=== PATIENT | female | born 1950 | race Caucasian/White ===

== ENCOUNTER → 2016-05-05 | Outpatient (CLI) | payer BC ==
--- NOTE | 2016-05-06 09:09 | MM ---
Reason for exam: screening (asymptomatic). Last mammogram was performed 1 year and 1 month ago. History: Patient is postmenopausal. Benign US left CoreBiopsy of the left breast, March 19, 2006. Physical Findings: A clinical breast exam by your physician is recommended on an annual basis and results should be correlated with mammographic findings. MG Screening Mammo w CAD Bilateral CC and MLO view(s) were taken. Prior study comparison: April 11, 2015, bilateral MG 3d diag mammo w/cad DARCY. March 22, 2014, right breast MG work up mamm w CAD RT. Finding: There are typically benign calcifications in both breasts. Previous mammotome biopsy in the left breast. No significant changes in finding since April 11, 2015 and March 22, 2014. ASSESSMENT: Benign, BI-RAD 2 RECOMMENDATION: Routine screening mammogram of both breasts in 1 year.
== END | disposition home or self-care (01) ==
LOC: RADMAMWWP 10:09
PROVIDERS: ATTEND Family Medicine
DX: Z12.31 Encounter for screening mammogram for malignant neoplasm of breast (principal)

== ENCOUNTER 2016-06-11 12:25 | Observation (INO) | payer MEDICARE, BC ==
[2016-06-11] MEDS ORDERED: SODIUM CHLORIDE 0.9% 1,000 ML IV STA (12:44)
--- NOTE | 2016-06-11 12:51 | ED ---
General Adult HPI - General Chief complaint: Recheck/Abnormal Lab/Rx Stated complaint: High Heart Rate Time Seen by Provider: 06/11/16 12:29 Source: patient, EMS, RN notes reviewed Mode of arrival: EMS Limitations: no limitations - History of Present Illness Initial comments: Patient is a pleasant 65-year-old female presenting to the emergency Department with palpitations. Onset of symptoms was prior to arrival. Patient felt her heart going fast. Patient also had some mild pressure in her chest and was sweaty. Symptoms resolved with medication by EMS. EMS did provide adenosine 6 mg followed by 12 mg. Patient did have similar symptoms a couple times previously. No previous diagnosis was obtained. - Related Data Home Medications Medication Instructions Recorded Confirmed ALPRAZolam [Xanax] 0.25 mg PO DAILY PRN 02/10/14 06/11/16 RABEprazole SODIUM [Aciphex] 20 mg PO DAILY 02/10/14 06/11/16 Cholecalciferol [Vitamin D3] 1,000 unit PO DAILY 06/11/16 06/11/16 FLUoxetine HCL [PROzac] 30 mg PO DAILY 06/11/16 06/11/16 Fish Oil/Dha/Epa [Fish Oil 1,200 1 cap PO DAILY 06/11/16 06/11/16 mg Fish Oil] Magnesium 200 mg PO DAILY 06/11/16 06/11/16 Pitavastatin Calcium [Livalo] 2 mg PO WEEKLY 06/11/16 06/11/16 Probiotic (Liquid) 5 ml PO DAILY 06/11/16 06/11/16 Verapamil HCl [Verapamil ER] 120 mg PO ONCE PRN 06/11/16 06/11/16 Allergies Allergy/AdvReac Type Severity Reaction Status Date / Time azithromycin [From Zithromax] Allergy Diarrhea Verified 06/11/16 14:05 cephalexin Allergy Rash/Hives Verified 06/11/16 14:05 clindamycin Allergy BURNING Verified 06/11/16 14:05 TONGUE, NAUSEA levofloxacin [From Levaquin] Allergy COULD NOT Verified 06/11/16 14:05 SLEEP nitrofurantoin Allergy Unknown Verified 06/11/16 14:05 [From Macrobid] Penicillins Allergy Rash/Hives Verified 06/11/16 14:05 Jftpyya-Qtv-Dty Reductase Allergy Unknown Verified 06/11/16 14:05 Inhibitor Sulfa (Sulfonamide AdvReac Nausea & Verified 06/11/16 14:05 Antibiotics) Vomiting viomycin [Viomycin] AdvReac Nausea & Verified 06/11/16 14:05 Vomiting SUDAFEDRINE Allergy Rapid Uncoded 06/11/16 14:05 Heart Rate Review of Systems ROS Statement: Those systems with pertinent positive or pertinent negative responses have been documented in the HPI. ROS Other: All systems not noted in ROS Statement are negative. Constitutional: Denies: fever Eyes: Denies: eye pain ENT: Denies: ear pain Respiratory: Denies: cough, dyspnea Cardiovascular: Reports: chest pain, palpitations Endocrine: Denies: fatigue Gastrointestinal: Denies: abdominal pain Genitourinary: Denies: dysuria Musculoskeletal: Denies: back pain Skin: Denies: rash Neurological: Denies: weakness Past Medical History Past Medical History: GERD/Reflux Additional Past Medical History / Comment(s): HX UTI'S History of Any Multi-Drug Resistant Organisms: None Reported Past Surgical History: Cholecystectomy, Hysterectomy, Orthopedic Surgery, Tonsillectomy Past Anesthesia/Blood Transfusion Reactions: Motion Sickness, Postoperative Nausea & Vomiting (PONV) Smoking Status: Former smoker Past Alcohol Use History: None Reported Additional Past Alcohol Use History / Comment(s): QUIT SMOKING 1972 STARTED APRROX 1966 Past Drug Use History: None Reported General Exam Limitations: no limitations General appearance: alert, in no apparent distress Head exam: Present: atraumatic Eye exam: Present: normal appearance, PERRL ENT exam: Present: normal oropharynx Neck exam: Present: normal inspection Respiratory exam: Present: normal lung sounds bilaterally Cardiovascular Exam: Present: regular rate, normal rhythm Expanded Peripheral pulses: 2+: Radial (R), Radial (L), Dorsalis Pedis (R), Dorsalis Pedis (L) GI/Abdominal exam: Present: soft. Absent: tenderness Extremities exam: Present: normal inspection. Absent: pedal edema, calf tenderness Neurological exam: Present: alert Psychiatric exam: Present: normal affect, normal mood Skin exam: Absent: rash Course Vital Signs 06/11/16 06/11/16 06/11/16 12:28 13:25 13:26 Temperature 100.3 F H Pulse Rate 95 91 Pulse Rate [ 89 Bilateral Radial] Respiratory 16 15 Rate Blood Pressure 172/94 158/92 O2 Sat by Pulse 97 99 Oximetry 06/11/16 14:30 Temperature 99.0 F Pulse Rate 97 Pulse Rate [ Bilateral Radial] Respiratory 14 Rate Blood Pressure 178/84 O2 Sat by Pulse 95 Oximetry - Reevaluation(s) Reevaluation #1: 06/11/16 12:50 EMS strip reviewed with appearance of SVT. EKG Findings - EKG Comments: EKG Findings:: Normal sinus rhythm and 92. GA 158. QRS 78. QT 386. QTc 477. Normal axis. Septal Q waves. No acute ST changes. Medical Decision Making - Medical Decision Making Patient reevaluated and resting comfortably in bed. Heart rate remains normal. Case discussed in detail with Dr. miller who does recommend observation and will consult. Case was also discussed in detail with Dr. Prado, who will admit for Dr. Phillips. - Lab Data Result diagrams: 06/11/16 12:45 06/11/16 12:45 Lab Results 06/11/16 06/11/16 06/11/16 Range/Units 12:45 12:45 12:45 WBC 8.1 (3.8-10.6) k/uL RBC 4.85 (3.80-5.40) m/uL Hgb 14.7 (11.4-16.0) gm/dL Hct 43.2 (34.0-46.0) % MCV 89.2 (80.0-100.0) fL MCH 30.4 (25.0-35.0) pg MCHC 34.1 (31.0-37.0) g/dL RDW 12.9 (11.5-15.5) % Plt Count 294 (150-450) k/uL Neutrophils % 70 % Lymphocytes % 19 % Monocytes % 6 % Eosinophils % 2 % Basophils % 1 % Neutrophils # 5.7 (1.3-7.7) k/uL Lymphocytes # 1.6 (1.0-4.8) k/uL Monocytes # 0.5 (0-1.0) k/uL Eosinophils # 0.1 (0-0.7) k/uL Basophils # 0.1 (0-0.2) k/uL PT (9.0-12.0) sec INR (<1.1) APTT (22.0-30.0) sec Sodium 143 (137-145) mmol/L Potassium 3.9 (3.5-5.1) mmol/L Chloride 107 (98-107) mmol/L Carbon Dioxide 23 (22-30) mmol/L Anion Gap 13 mmol/L BUN 14 (7-17) mg/dL Creatinine 0.77 (0.52-1.04) mg/dL Est GFR (MDRD) Af Amer >60 (>60 ml/min/1.73 sqM) Est GFR (MDRD) Non-Af >60 (>60 ml/min/1.73 sqM) Glucose 121 H (74-99) mg/dL Calcium 9.8 (8.4-10.2) mg/dL Magnesium 1.9 (1.6-2.3) mg/dL Total Bilirubin 0.7 (0.2-1.3) mg/dL AST 31 (14-36) U/L ALT 34 (9-52) U/L Alkaline Phosphatase 105 (38-126) U/L Total Creatine Kinase 125 (30-135) U/L CK-MB (CK-2) 1.3 (0.0-2.4) ng/mL CK-MB (CK-2) Rel Index 1.0 Troponin I <0.012 (0.000-0.034) ng/mL Total Protein 7.6 (6.3-8.2) g/dL Albumin 4.4 (3.5-5.0) g/dL TSH 2.940 (0.465-4.680) mIU/L Free T4 1.04 (0.78-2.19) ng/dL Free T3 pg/mL 4.1 (2.8-5.3) pg/ml Urine Color Urine Appearance (Clear) Urine pH (5.0-8.0) Ur Specific [place] (1.001-1.035) Urine Protein (Negative) Urine Glucose (UA) (Negative) Urine Ketones (Negative) Urine Blood (Negative) Urine Nitrate (Negative) Urine Bilirubin (Negative) Urine Urobilinogen (<2.0) mg/dL Ur Leukocyte Esterase (Negative) Urine RBC (0-5) /hpf Urine WBC (0-5) /hpf Amorphous Sediment (None) /hpf Influenza Type A RNA (Not Detectd) Influenza Type B (PCR) (Not Detectd) 06/11/16 06/11/16 06/11/16 Range/Units 12:45 13:28 14:21 WBC (3.8-10.6) k/uL RBC (3.80-5.40) m/uL Hgb (11.4-16.0) gm/dL Hct (34.0-46.0) % MCV (80.0-100.0) fL MCH (25.0-35.0) pg MCHC (31.0-37.0) g/dL RDW (11.5-15.5) % Plt Count (150-450) k/uL Neutrophils % % Lymphocytes % % Monocytes % % Eosinophils % % Basophils % % Neutrophils # (1.3-7.7) k/uL Lymphocytes # (1.0-4.8) k/uL Monocytes # (0-1.0) k/uL Eosinophils # (0-0.7) k/uL Basophils # (0-0.2) k/uL PT 11.1 (9.0-12.0) sec INR 1.1 (<1.1) APTT 24.0 (22.0-30.0) sec Sodium (137-145) mmol/L Potassium (3.5-5.1) mmol/L Chloride (98-107) mmol/L Carbon Dioxide (22-30) mmol/L Anion Gap mmol/L BUN (7-17) mg/dL Creatinine (0.52-1.04) mg/dL Est GFR (MDRD) Af Amer (>60 ml/min/1.73 sqM) Est GFR (MDRD) Non-Af (>60 ml/min/1.73 sqM) Glucose (74-99) mg/dL Calcium (8.4-10.2) mg/dL Magnesium (1.6-2.3) mg/dL Total Bilirubin (0.2-1.3) mg/dL AST (14-36) U/L ALT (9-52) U/L Alkaline Phosphatase (38-126) U/L Total Creatine Kinase (30-135) U/L CK-MB (CK-2) (0.0-2.4) ng/mL CK-MB (CK-2) Rel Index Troponin I (0.000-0.034) ng/mL Total Protein (6.3-8.2) g/dL Albumin (3.5-5.0) g/dL TSH (0.465-4.680) mIU/L Free T4 (0.78-2.19) ng/dL Free T3 pg/mL (2.8-5.3) pg/ml Urine Color Light Yellow Urine Appearance Clear (Clear) Urine pH 8.0 (5.0-8.0) Ur Specific [place] 1.004 (1.001-1.035) Urine Protein Negative (Negative) Urine Glucose (UA) Negative (Negative) Urine Ketones Negative (Negative) Urine Blood Trace H (Negative) Urine Nitrate Negative (Negative) Urine Bilirubin Negative (Negative) Urine Urobilinogen <2.0 (<2.0) mg/dL Ur Leukocyte Esterase Negative (Negative) Urine RBC 6 H (0-5) /hpf Urine WBC 1 (0-5) /hpf Amorphous Sediment Rare H (None) /hpf Influenza Type A RNA Not Detected (Not Detectd) Influenza Type B (PCR) Not Detected (Not Detectd) - Radiology Data Radiology results: image reviewed (Chest x-ray shows no acute process. They density stable since 2009 and could be scarring or atelectasis.) Disposition Clinical Impression: SVT (supraventricular tachycardia) Disposition: ADMITTED IP TO THIS HOSP
[2016-06-11 13:03] LABS: Basophils # (A) 0.1 k/uL (0-0.2); Basophils % (A) 1 %; CH 30.8; CHCM 34.7; Eosinophils # (A) 0.1 k/uL (0-0.7); Eosinophils % (A) 2 %; HCT 43.2 % (34.0-46.0); HDW 2.26; HGB 14.7 gm/dL (11.4-16.0); Luc # (Auto) 0.21; Luc % (Auto) 3; Lymphocytes # (A) 1.6 k/uL (1.0-4.8); Lymphocytes % (A) 19 %; MCH 30.4 pg (25.0-35.0); MCHC 34.1 g/dL (31.0-37.0); MCV 89.2 fL (80.0-100.0); Mean Platelet Volume 8.5; Monocytes # (A) 0.5 k/uL (0-1.0); Monocytes % (A) 6 %; Neutrophils # (A) 5.7 k/uL (1.3-7.7); Neutrophils % (A) 70 %; RBC 4.85 m/uL (3.80-5.40); RDW 12.9 % (11.5-15.5); WBC 8.1 k/uL (3.8-10.6); WBC (Perox) 7.83
--- NOTE | 2016-06-11 13:07 | XR ---
EXAMINATION TYPE: XR chest 2V DATE OF EXAM: 06/11/2016 1:02 PM COMPARISON: 07/12/2009 TECHNIQUE: PA and lateral views submitted. HISTORY: Dysrhythmia FINDINGS: The lungs are clear and there is no pneumothorax, pleural effusion, or focal pneumonia. The heart i s enlarged and hyperinflation suggests COPD. Biapical pleural thickening. Degenerative change of the spine. Surgical clips in the upper abdomen. Vague density along the right costophrenic angle noted ap pears retrospectively stable. IMPRESSION: 1. No acute process. Correlate for COPD. 2. Vague density along the right costophrenic angle appears retrospectively stable dating back to 201 0 and therefore likely related to scar or atelectasis. Confirmation with short-term follow up CT scan could be obtained.
[2016-06-11 13:14] LABS: INR 1.1 (<1.1); Prothrombin Time 11.1 sec (9.0-12.0)
[2016-06-11 13:28] LABS: ALT 34 U/L (9-52); AST 31 U/L (14-36); Alkaline Phosphatase 105 U/L (38-126); Anion Gap 13 mmol/L; Blood Urea Nitrogen 14 mg/dL (7-17); Calcium 9.8 mg/dL (8.4-10.2); Carbon Dioxide 23 mmol/L (22-30); Chloride 107 mmol/L (98-107); Glucose 121 mg/dL (74-99); Magnesium 1.9 mg/dL (1.6-2.3); Non-African American GFR(MDRD) >60 (>60 ml/min/1.73 sqM); Sodium 143 mmol/L (137-145); Total Bilirubin 0.7 mg/dL (0.2-1.3); Total Protein 7.6 g/dL (6.3-8.2)
[2016-06-11 13:30] LABS: Potassium 3.9 mmol/L (3.5-5.1)
[2016-06-11 13:35] LABS: Creatine Kinase 125 U/L (30-135)
[2016-06-11 13:48] LABS: Creatine Kinase MB 1.3 ng/mL (0.0-2.4); Troponin I <0.012 ng/mL (0.000-0.034)
[2016-06-11 14:46] LABS: Amorphous Sediment,Urine Rare /hpf; Appearance,Urine Clear (Clear); Bilirubin,Urine Negative (Negative); Glucose,Urine (UA) Negative (Negative); Ketones,Urine Negative (Negative); Leukocyte Esterase,Urine Negative (Negative); Nitrite,Urine Negative (Negative); Particle Count 1042; Protein,Urine Negative (Negative); RBC,Urine 6 /hpf (0-5); Specific Gravity,Urine 1.004 (1.001-1.035); UA Billing (MACRO vs. MICRO) MICRO; Urobilinogen,Urine <2.0 mg/dL (<2.0); WBC,Urine 1 /hpf (0-5)
[2016-06-11] MEDS ORDERED: ASPIRIN 81 MG CHEW PO STA (15:37)
[2016-06-11] MEDS ORDERED: NITROGLYCERIN SL TABS 0.4 MG TAB SUBLINGUAL PRN (15:37)
[2016-06-11] MEDS ORDERED: RX INFO: IV CONTRAST WAS GIVEN 1 EACH MISC MISCELLANE PRN (15:45)
--- NOTE | 2016-06-11 16:27 | CT ---
EXAMINATION TYPE: CT chest w con DATE OF EXAM: 06/11/2016 4:18 PM COMPARISON: NONE HISTORY: Patient complains of episode of chest heaviness. CT DLP: 371.7 mGycm Automated exposure control for dose reduction was used. CONTRAST: CT scan of the chest is performed with IV Contrast, patient injected with 100 mL of Omnipaque 300. FINDINGS: LUNGS: The lungs are grossly clear, there is no concerning parenchymal mass or nodule identified. The re is mild pleural parenchymal density at the right lateral lung base which is felt to be chronic in nature and likely related to a remote rib fracture in this region. There is no pleural effusion or p neumothorax seen. The tracheobronchial tree is patent. MEDIASTINUM: There are no greater than 1 cm hilar or mediastinal lymph nodes. No pericardial effusi on is seen. Thoracic aorta is of normal caliber. The heart is not enlarged. UPPER ABDOMEN: No significant abnormality appreciated. OTHER: No additional significant abnormality is seen. IMPRESSION: 1. No acute process of the chest identified.
[2016-06-11] MEDS ORDERED: ALPRAZolam 0.25 MG TAB PO PRN (16:49)
[2016-06-11] MEDS: PANTOPRAZOLE 40 MG/10 ML VIAL IVP SCH (17:47)
[2016-06-11 18:01] VITALS: BMI 30.9
--- NOTE | 2016-06-11 18:43 | HP ---
DATE OF ADMISSION: Patient is a 70-year-old female who came into the emergency department with complaints of palpitations and patient was also having chest pressure like sensation and sweating. Patient received ( ). Patient was found to have ( ) and received 6 mg of ( ) followed by 6 mg more with rhythm coming back to sinus rhythm. I did not get a chance to review the EKG in order to see whether this area ( ) or not. Patient denied any fever, chills. Patient denied nausea, vomiting. Did respond to ( ). Patient has a low grade fever. Patient denied any urinary tract infection like symptoms. UA essentially within normal limits. Chest x-ray within normal limits. There is no evidence of ( ) at this point of time. Patient had only one low grade fever. Patient ( ). Patient in the past had similar episode in the past was secondary to her medications, which were subsequently discontinued. Patient initially thought patient may have acid reflux. REVIEW OF SYSTEMS: CONSTITUTIONAL: No fever, no malaise, no fatigue. HEENT: No recent visual problems or hearing problems. Denied any sore throat. CARDIOVASCULAR: As described in HPI. PULMONARY: No shortness of breath, no cough, no hemoptysis. GASTROINTESTINAL: No diarrhea, no nausea, no vomiting, no abdominal pain. Normoactive bowel sounds. NEUROLOGICAL: No headaches, no weakness, no numbness. HEMATOLOGICAL: Denies any bleeding or petechiae. GENITOURINARY: Denies any burning micturition, frequency, or urgency. MUSCULOSKELETAL/RHEUMATOLOGICAL: Denies any joint pain, swelling, or any muscle pain. ENDOCRINE: Denies any polyuria or polydipsia. The rest of the 14 point review of systems is negative. HOME MEDICATIONS: ( ), cholecalciferol, fluoxetine, fish oil, magnesium, pravastatin, probiotics, verapamil. That was given once for her tachycardia. ALLERGIES: ALLERGIC TO AZITHROMYCIN, CEPHALEXIN, CLINDAMYCIN, LEVOFLOXACIN, NITROFURANTOIN, PENICILLIN, STATIN, SULFA DRUGS, ( ). PAST MEDICAL HISTORY: Gastroesophageal reflux disease, hyperlipidemia, although it says patient is allergic to statins, patient is on pitavastatin. Depression, anxiety disorder. SOCIAL HISTORY: Denied any smoking, alcohol abuse or drug abuse. FAMILY HISTORY: Denied any premature coronary artery disease. PHYSICAL EXAMINATION: Temperature 100.3, pulse 89, respiratory rate 16, blood pressure 158/92, saturating at 99% on room air. GENERAL: The patient is alert and oriented x3, not in any acute distress. Well developed, well nourished. HEENT: Pupils are round and equally reacting to light. EOMI. No scleral icterus. No conjunctival pallor. Normocephalic, atraumatic. No pharyngeal erythema. No thyromegaly. CARDIOVASCULAR: S1 and S2 present. No murmurs, rubs, or gallops. PULMONARY: Chest is clear to auscultation, no wheezing or crackles. ABDOMEN: Soft, nontender, nondistended, normoactive bowel sounds. No palpable organomegaly. MUSCULOSKELETAL: No joint swelling or deformity. EXTREMITIES: No cyanosis, clubbing, or pedal edema. NEUROLOGICAL: Gross neurological examination did not reveal any focal deficits. SKIN: No rashes. LABORATORY DATA: CBC, CMP, no significant abnormality was appreciated. TSH and T4 are essentially within normal limits. UA did not show any significant abnormalities. Chest x-ray did not show any pneumonic process. ( ) negative. ASSESSMENT AND PLAN: 1. Supra Ventricular tachycardia: Cardiology will evaluate the patient and will order an echocardiogram. Patient may need ( ) study. Patient will benefit from beta blockers. Will leave that decision to Cardiology. ( ) 2. Gastroesophageal reflux disease. Patient will continue on Protonix. 3. Hyperlipidemia. Will continue home medications. ( ) discharge from the hospital, that is pitavastatin. As patient is allergic to other statins. 4. Low-grade fever without any other signs or symptoms of infection. ( ) Will just monitor her over night and I do not think patient will need any antibiotics at this point of time. 5. Patient's primary care physician is Dr. Eze Phillips. [facility]
[2016-06-11] MEDS ORDERED: ONDANSETRON 4 MG/2 ML VIAL IVP PRN (19:01)
[2016-06-11 21:05] LABS: Creatine Kinase MB 1.2 ng/mL (0.0-2.4); Troponin I 0.013 ng/mL (0.000-0.034)
[2016-06-12 03:18] LABS: Cholesterol 186 mg/dL (<200); HDL Cholesterol 59 mg/dL (40-60); Triglycerides 65 mg/dL (<150)
[2016-06-12 03:57] LABS: Creatine Kinase MB 1.1 ng/mL (0.0-2.4); Troponin I 0.012 ng/mL (0.000-0.034)
[2016-06-12 05:48] VITALS: TEMP 97.7
[2016-06-12 07:45] VITALS: RESP 18
[2016-06-12] MEDS ORDERED: FLUoxetine HCL 10 MG CAP PO SCH (09:00)
[2016-06-12] MEDS ORDERED: NON-FORMULARY DRUG (Rabeprazole Sodium [Aciphex] 20 MG) PO SCH (09:00)
[2016-06-12] MEDS ORDERED: ASPIRIN 325 MG TAB PO SCH (09:00)
[2016-06-12] MEDS ORDERED: MAGNESIUM OXIDE 400 MG TAB PO SCH (09:00)
[2016-06-12] MEDS ORDERED: VERAPAMIL SR 120 MG TABLET.ER PO SCH (09:00)
[2016-06-12] MEDS ORDERED: NON-FORMULARY DRUG (Fish Oil/Dha/Epa [Fish Oil 1,200 Mg Fish Oil] 1 CAP) PO SCH (09:00)
--- NOTE | 2016-06-12 09:48 | ECHOF ---
Referral Reason:SVT/Chest pain MEASUREMENTS -------- HEIGHT: 175.3 cm WEIGHT: 94.8 kg BP: 148/81 RVIDd: 2.9 cm (< 3.3) IVSd: 1.1 cm (0.6 - 1.1) LVIDd: 4.7 cm (3.9 - 5.3) LVPWd: 1.2 cm (0.6 - 1.1) IVSs: 2.0 cm LVIDs: 3.4 cm LVPWs: 1.6 cm LA Diam: 3.8 cm (2.7 - 3.8) LAESV Index (A-L): 23.42 ml/m Ao Diam: 2.8 cm (2.0 - 3.7) AV Cusp: 1.8 cm (1.5 - 2.6) LA Diam: 3.9 cm (2.7 - 3.8) MV EXCURSION: 11.714 mm (> 18.000) MV EF SLOPE: 69 mm/s (70 - 150) EPSS: 0.5 cm MV E Tom: 0.78 m/s MV DecT: 277 ms MV A Tom: 0.85 m/s MV E/A Ratio: 0.91 FINDINGS -------- Sinus rhythm. This was a technically good study. There is borderline concentric left ventricular hypertrophy. Overall left ventricular systolic function is normal with, an EF between 55 - 60 %. The right ventricle is normal in size. Normal LA size by volume 22+/-6 ml/m2. The right atrium is normal in size. Aortic valve is trileaflet and is mildly thickened. The mitral valve leaflets are mildly thickened. Mild mitral annular calcification present. Mild mitral regurgitation is present. Trace tricuspid regurgitation present. Pulmonic valve appears structurally normal. The aortic root size is normal. Normal inferior vena cava with normal inspiratory collapse consistent with estimated right atrial pressure of 5 mmHg. Echo free space may represent effusion or a pericardial fat pad. CONCLUSIONS -------- 1. This was a technically good study. 2. Mild mitral regurgitation is present. 3. Trace tricuspid regurgitation present. 4. Pulmonic valve appears structurally normal. 5. The aortic root size is normal. 6. Normal inferior vena cava with normal inspiratory collapse consistent with estimated right atrial pressure of 5 mmHg. 7. Echo free space may represent effusion or a pericardial fat pad. 8. There is borderline concentric left ventricular hypertrophy. 9. Overall left ventricular systolic function is normal with, an EF between 55 - 60 %. 10. The right ventricle is normal in size. 11. Normal LA size by volume 22+/-6 ml/m2. 12. The right atrium is normal in size. 13. Aortic valve is trileaflet and is mildly thickened. 14. The mitral valve leaflets are mildly thickened. 15. Mild mitral annular calcification present. TAPE COATER: Jone Gold RDCS
[2016-06-12] MEDS: CHOLECALCIFEROL 1,000 UNIT TAB PO SCH ×2 (11:49→11:51)
[2016-06-12] MEDS: PANTOPRAZOLE 40 MG/10 ML VIAL IVP SCH (11:51)
[2016-06-12 12:00] VITALS: BP 156/78; PULSE 66
--- NOTE | 2016-06-12 14:07 | CONS ---
DATE OF CONSULTATION: Mrs. Huffman is a 65-year-old female who is seen for the cardiac evaluation. The history and physical examinations are reviewed. Patient presented to the emergency room department with palpitations. Patient felt her heart was going fast. She took Isoptin without any relief and the fast heart rate persisted. Patient had mild pressure in the chest and she was sweaty. She was not dizzy or lightheaded. The EMS strips were suggestive of supraventricular tachycardia. Patient received 6 and 12 mg of Adenocard and then patient converted to the normal sinus rhythm. I do not have any strips available to review it. Patient does have a past history of supraventricular tachycardia. Patient had an episode in April and was subsided by taking Isoptin. She had a similar episode about a year ago. This patient has a history of borderline hypertension. Denies any history of diabetes. Denies any history of angina. Patient is active physically. Home medications include vitamin D3, Aciphex, Prozac and Livalo. Allergic to CLINDAMYCIN, ZITHROMAX, LEVAQUIN and SULFA. Review of the system is otherwise unremarkable. Past medical history includes history of cholecystectomy, hysterectomy, orthopedic surgery and tonsillectomy. SMOKING STATUS: Prior history of smoking. Physical examination at present reveals a 65-year-old female who is comfortable. Patient had a temperature of 100.3 in the emergency room and the blood pressure was 172. Patient subsequently has remained afebrile since the admission. Blood pressure now is 152-76 mmHg. HEENT examination is negative. Neck is supple. There is no increase in jugular venous pressure. Both the carotid pulses are felt. There is no bruit. Chest is symmetrical. HEART: The PMI is not felt. First and second heart sounds are normal. Lungs are clinically clear to auscultation and percussion. Abdomen is soft. Liver and spleen are not enlarged. Bowel sounds are heard. EXTREMITIES: Peripheral pulsations are 2+. EKG shows normal sinus rhythm without any acute ischemic changes. Patient's echocardiogram was normal. Patient had a chest CT done which was normal. Three sets of cardiac enzymes are normal. The patient's cholesterol LDL is still 114. FT4 and TSH was normal. FINAL IMPRESSION: This patient has had been having recurrent episodes of supraventricular tachycardia. Patient has a history of borderline hypertension and hyperlipidemia. There is no history suggestive of coronary artery disease. RECOMMENDATIONS: At present, patient is comfortable. She will be discharged home. She is advised to take regularly Isoptin once a day. She can take extra Isoptin if she has any recurrence of supraventricular tachycardia. The patient would follow up with Dr. Rodriguez. I discussed with the patient regarding further evaluation for radiofrequency ablation. She will discuss this with Dr. Rodriguez and a stress test will be done, if she did not have any stress test done recently because of the multiple risk factors.
--- NOTE | 2016-06-13 08:33 | DS ---
DATE OF ADMISSION: 06/11/2016 DATE OF DISCHARGE: 06/12/2016 This is a 65-year-old admitted secondary to SVT. SVT resolved with adenosine. Patient was evaluated by Cardiology. Echocardiogram was obtained, which was negative. Patient has verapamil at home. Patient was asked to continue the verapamil and patient was asked to follow up with Dr. Rodriguez for further evaluation and possible EP study as an outpatient. TSH is essentially within normal limits. I am not sure why patient had a CT of the chest which did not show any significant abnormality. Patient is being discharged in stable medical condition to home. Please refer to my depart summary for further details of discharge medications and for further medical problems, please refer to my H&P from yesterday. Activity as tolerated. Cardiac diet. Follow up with Dr. Rodriguez in one week; Dr. Eze Phillips in 3 to 5 days.
== END 2016-06-12 15:15 | disposition home or self-care (01) ==
LOC: EC 12:25 → 3OBS 15:39
PROVIDERS: ADMIT Internal Medicine; ATTEND Internal Medicine
DX: I47.1 Supraventricular tachycardia (principal); R50.9 Fever, unspecified; E78.5 Hyperlipidemia, unspecified; K21.9 Gastro-esophageal reflux disease without esophagitis; R03.0 Elevated blood-pressure reading, without diagnosis of hypertension; F32.9 Major depressive disorder, single episode, unspecified; F41.9 Anxiety disorder, unspecified; Z88.0 Allergy status to penicillin; Z88.1 Allergy status to other antibiotic agents; Z88.2 Allergy status to sulfonamides; Z87.891 Personal history of nicotine dependence; Z79.899 Other long term (current) drug therapy
CPT/HCPCS: 36415; 93005; 93306; 84439; 84481; 80061; 80053; 84443 ×2; 82550 ×2; 82553 ×2; 83735; 84484 ×2; 85025; 85610; 85730 ×2; 81001; 87502; 71020; 71260; 99285; G0378 ×2; J2405; Q9967

== ENCOUNTER 2016-07-17 10:13 | Day surgery (SDC) | payer MEDICARE, BC ==
[~2016-07-17 10:13] MED LIST: LACTATED RINGERS 1,000 ML IV SCH; SODIUM CHLORIDE 0.9% 1,000 ML IV SCH
[2016-07-17 11:00] LABS: Basophils # (A) 0.1 k/uL (0-0.2); Basophils % (A) 1 %; CH 30.8; CHCM 33.9; Eosinophils # (A) 0.2 k/uL (0-0.7); Eosinophils % (A) 2 %; HCT 39.8 % (34.0-46.0); HDW 2.18; HGB 13.4 gm/dL (11.4-16.0); Luc # (Auto) 0.16; Luc % (Auto) 3; Lymphocytes # (A) 1.6 k/uL (1.0-4.8); Lymphocytes % (A) 26 %; MCH 30.7 pg (25.0-35.0); MCHC 33.6 g/dL (31.0-37.0); MCV 91.1 fL (80.0-100.0); Mean Platelet Volume 7.4; Monocytes # (A) 0.3 k/uL (0-1.0); Monocytes % (A) 5 %; Neutrophils # (A) 3.9 k/uL (1.3-7.7); Neutrophils % (A) 63 %; RBC 4.37 m/uL (3.80-5.40); RDW 13.3 % (11.5-15.5); WBC 6.1 k/uL (3.8-10.6); WBC (Perox) 5.99
[2016-07-17 11:17] LABS: Anion Gap 9 mmol/L; Blood Urea Nitrogen 16 mg/dL (7-17); Calcium 9.4 mg/dL (8.4-10.2); Carbon Dioxide 26 mmol/L (22-30); Chloride 105 mmol/L (98-107); Glucose 101 mg/dL (74-99); Non-African American GFR(MDRD) >60 (>60 ml/min/1.73 sqM); Potassium 4.1 mmol/L (3.5-5.1); Sodium 140 mmol/L (137-145)
[2016-07-17] MEDS ORDERED: MIDAZOLAM 2 MG/2 ML VIAL IV ONE (11:46)
[2016-07-17] MEDS ORDERED: MIDAZOLAM 2 MG/2 ML VIAL ONE ×2 (11:47→12:05)
[2016-07-17] MEDS ORDERED: fentaNYL (PF) 50 MCG/ML 2 ML AMP ONE (12:05)
[2016-07-17] MEDS ORDERED: PROPOFOL 10 MG/ML 20 ML VIAL IV ONE (12:05)
[2016-07-17] MEDS ORDERED: ISOPROTERENOL 250 MCG/1.25 ML SYR IV ONE (12:05)
[2016-07-17] MEDS ORDERED: LIDOCAINE 2% INJ 20 MG/ML SQ ONE ×3 (12:52→13:03)
[2016-07-17] MEDS ORDERED: ADENOSINE 3 MG/ML 2 ML VIAL IVP ONE (14:05)
[2016-07-17] MEDS ORDERED: ADENOSINE 3 MG/ML 4 ML VIAL IVP ONE (14:05)
[2016-07-17] MEDS ORDERED: SODIUM CHLORIDE 0.9% 1,000 ML IV ONE (15:14)
[2016-07-17] MEDS ORDERED: HYDROcodone/APAP 5-325MG 1 EACH TAB PO PRN (15:31)
[2016-07-17] MEDS ORDERED: ACETAMINOPHEN TAB 325 MG TAB PO PRN (15:31)
[2016-07-17] MEDS ORDERED: ALPRAZolam 0.25 MG TAB PO PRN (15:33)
[2016-07-17] MEDS ORDERED: ACETAMINOPHEN IV (For NPO) 1,000 MG in EMPTY BAG 1 BAG IVPB ONE (16:15)
--- NOTE | 2016-07-17 16:19 | CE ---
DATE OF SERVICE: Marianne Huffman is a 66-year-old female who has had recurrent drug refractory supraventricular tachycardia, symptomatic. She is brought in for a diagnostic EP study. Verapamil was held. Patient was brought to the EP lab in a fasting state. Written informed consent was obtained prior to the procedure. The left shoulder area was prepped and draped as per protocol and 1% lidocaine was used for local anesthesia. A 6 Pakistani sheath was placed in left axillary vein and via this decapolar catheter was positioned in the coronary sinus for coronary sinus pacing and recording. Three venous sheaths were placed in the right femoral vein. Via these, 3 diagnostic catheters were placed in the right heart (high right catheter, His bundle catheter and RV catheter). Baseline measurements were as follows: Sinus cycle 822 ms, MA interval 155 ms, QRS 100 ms and QT 438 ms, AH interval 75 ms, HV interval 52 ms. Sinus recovery times at 600, 500, and 400 ms were 1151, 941 and 1079 ms. Corresponding corrected sinus node recovery times were within normal limits. There was no evidence of slow pathway conduction. No delta waves are noted. AV node Wenckebach block was 390 ms, VA Wenckebach block was 340 ms. Atrial extrastimulation was performed. An antegrade jump was noted with double extra stimuli and echo beats were noted. Atrial ERP 600/400/280 ms. Ventricular extrastimulation was performed and retrograde jump was noted and occasional echo beats are noted. Later slow SVT was noted with ventricular extrastimulation. Ventricular ERP was 600/270 ms. Parahisian pacing was performed. Solo response was noted. Isuprel was then started, left bundle branch block aberrancy was noted with atrial pacing on Isuprel. AV node Wenckebach block 270 ms, VA Wenckebach block 240 ms. Ventricular extrastimulation was performed. Atrial extrastimulation was performed. A single, double and triple echo beats were noted. No sustained SVT was induced even with CS pacing. Therefore in view of this evidence of absence of any accessory pathway, no inducible atrial tachycardia in the presence of antegrade as well as retrograde slow pathway conduction with echo beats single, double and triple. SVT ablation, slow pathway was performed. A 4 mm-tip ablation catheter was used. Three-D mapping was performed. The His cloud was identified and tagged. Coronary sinus os and roof were tagged. RF ablation was performed anterior to the coronary sinus and this resulted in junctional rhythm. The patient had junctional beats with virtually all RF lesions. However, the antegrade and retrograde slow pathway conduction remained. Therefore, RF ablation was performed outside the coronary sinus and at its floor. Then subsequently, just within the os of the coronary sinus and at this site, junctional beats were noted in great numbers. With junctional rhythm, good power and good temperature was noted. The junctional rhythm were then converted to sinus rhythm. Following that, a full EP study was performed and only occasional echo beats were noted, but no sustained SVT was noted. All catheters were then removed and patient was transferred to telemetry. RESULT: Diagnostic EP study revealin. Normal sinus rhythm and function. 2. Antegrade and retrograde slow pathway conduction without inducible fast SVT as she clinically experienced, but evidence of short bursts of supraventricular tachycardia, AV node re-entry. 3. Absence of any accessory pathway either antegrade or retrogradely. 4. Absence of any atrial tachycardia. 5. Ablation of the slow pathway outside the coronary sinus anteriorly just at the floor of the coronary sinus, and just within the coronary sinus. PLAN: Patient will be taken off AV solo blocking drugs. If she has recurrence and then a left-sided AV and AVNRT ablation will be performed in the future.
--- NOTE | 2016-07-17 16:21 | LTR ---
July 17, 2016 RE: Marianne Huffman Vince Dear Dr. Phillips: I had the pleasure of seeing Marianne Huffman in electrophysiology follow-up. As you know, Marianne has recurrent episodes of SVT and despite AV franklin blocking drugs, she was brought in for a diagnostic EP study. 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 She underwent slow pathway ablation. I will now discontinue her AV franklin blocking drugs and switch to another antihypertensive therapy. She will continue follow-up with you and Dr. Rodriguez as before. Thank you for entrusting us with the care of your patient. Warm regards. Sincerely, JOHN DANGELO MD
[2016-07-17 18:24] VITALS: RESP 16
[2016-07-17 18:57] VITALS: BMI 31.2
[2016-07-17] MEDS ORDERED: ATORVASTATIN 10 MG TAB PO SCH (21:00)
[2016-07-18 08:09] VITALS: BP 142/73; PULSE 67; TEMP 98
[2016-07-18] MEDS ORDERED: FLUOXETINE PO SCH (09:00)
== END 2016-07-18 10:30 | disposition home or self-care (01) ==
LOC: CATHEP 10:13 → 3OBS 15:17 → CATHEP 07-18 10:30
PROVIDERS: ATTEND Internal Medicine Clinical Cardiac Electrophysiology
DX: I47.1 Supraventricular tachycardia (principal); R94.31 Abnormal electrocardiogram [ECG] [EKG]; I10 Essential (primary) hypertension; E78.2 Mixed hyperlipidemia; Z82.49 Family history of ischemic heart disease and other diseases of the circulatory system; F41.9 Anxiety disorder, unspecified; F32.9 Major depressive disorder, single episode, unspecified; Z79.899 Other long term (current) drug therapy; Z88.1 Allergy status to other antibiotic agents; Z88.0 Allergy status to penicillin; Z88.2 Allergy status to sulfonamides; Z88.8 Allergy status to other drugs, medicaments and biological substances
CPT/HCPCS: 93623; 93613; 93653; 80048; 85025; C1894; C1769; C1893; C1730 ×2; C1732; J2001; J2250; J3010; J0153 ×2; J2704

== ENCOUNTER → 2017-05-13 | Outpatient (CLI) | payer MEDICARE, BC ==
--- NOTE | 2017-05-15 07:20 | MM ---
Reason for exam: screening (asymptomatic). Last mammogram was performed 1 year ago. History: Patient is postmenopausal. Benign US left CoreBiopsy of the left breast, March 19, 2006. Physical Findings: A clinical breast exam by your physician is recommended on an annual basis and results should be correlated with mammographic findings. MG 3D Screening Mammo W/Cad Bilateral CC and MLO view(s) were taken. Prior study comparison: May 05, 2016, bilateral MG screening mammo w CAD. April 11, 2015, bilateral MG 3d diag mammo w/cad DARCY. The breast tissue is heterogeneously dense. This may lower the sensitivity of mammography. Previous mammotome biopsy in the left breast. No significant changes when compared with prior studies. ASSESSMENT: Benign, BI-RAD 2 RECOMMENDATION: Routine screening mammogram of both breasts in 1 year.
== END | disposition home or self-care (01) ==
LOC: RADMAMWWP 15:27
PROVIDERS: ATTEND Family Medicine
DX: Z12.31 Encounter for screening mammogram for malignant neoplasm of breast (principal)
CPT/HCPCS: 77063; 77067

== ENCOUNTER → 2018-04-14 | Outpatient (CLI) | payer MEDICARE, OTHER ==
--- NOTE | 2018-04-14 10:57 | US ---
EXAMINATION TYPE: US thyroid st tissue head/neck DATE OF EXAM: 04/14/2018 COMPARISON: NONE CLINICAL HISTORY: R59.0 Anterior Cervical Lymphadenopathy; sister has thyroid issues; patient has lef t upper neck palpable. GLAND SIZE: Right Lobe: 4.0 x 1.5 x 1.5 cm Overall Parenchyma: mildly heterogeneous Left Lobe: 3.7 x 1.1 x 1.4 cm Overall Parenchyma: heterogenous Isthmus Thickness: 1.4 cm NODULES RIGHT: # of nodules measured on right: 1 1. 0.4 X 0.3 x 0.3 cm hypoechoic mixed nodule at the lower pole with well-defined margins. This no dule is wide as is tall and shows no intranodular vascularity. LEFT: # of nodules measured on left: 2 1. 0.5 X 0.4 x 0.4 cm echogenic solid nodule at the lower medial pole with irregular margins. This nodule is wide as is tall and shows no intranodular vascularity. 2. Dystrophic calcification is seen within the left thyroid gland with shadowing. This measures 4 mm. ISTHMUS: # of nodules measured in the isthmus: 0 Bilateral neck scanned: lymph node is imaged superior to right thyroid = 1.6 x 0.7 x 0.4cm, and at le ft neck palpable a lymph node is seen = 2.0 x 1.0 x 0.6cm. The second lymph node at the palpable loca tion is slightly morphologically abnormal with an eccentric fatty hilum. IMPRESSION: 1. In the region of the patient's palpable abnormalities there are 2 lymph nodes. Although both are w ithin normal limits of size a second lymph node demonstrates slight abnormal morphology with an eccen tric fatty hilum. CT neck with contrast could further evaluate this lymph node and any additional abn ormality. 2. Subcentimeter bilateral thyroid nodules in an overall heterogenous thyroid gland. These do not walter t criteria for fine-needle aspiration at this time and surveillance.
== END | disposition home or self-care (01) ==
LOC: RADUSWWP 09:24
PROVIDERS: ATTEND Family Medicine
DX: E04.2 Nontoxic multinodular goiter (principal)
CPT/HCPCS: 76536

== ENCOUNTER → 2018-06-07 | Outpatient (CLI) | payer MEDICARE, OTHER ==
--- NOTE | 2018-06-07 13:40 | US ---
EXAMINATION TYPE: US kidneys/renal and bladder DATE OF EXAM: 06/07/2018 COMPARISON: NONE CLINICAL HISTORY: R10.9 ABD PAIN. Intermittent left flank pain x 1 year, microscopic hematuria last w chinik per patient, nausea EXAM MEASUREMENTS: Right Kidney: 10.3 x 5.9 x 4.7 cm Left Kidney: 10.3 x 5.4 x 5.2 cm Post Void Residual Volume: none Right Kidney: No hydronephrosis or masses seen and the right kidney shows a cystic focus at the uppe r pole likely simple cyst measuring 15 mm adjacent to an additional medullary cyst measuring 13 mm Left Kidney: No hydronephrosis or masses seen Bladder: wnl, but not fully distended Bilateral Jets seen: yes Normal Post Void Residual: yes There is no evidence for hydronephrosis at this point in time. No nephrolithiasis is seen. No omid s are identified. The urinary bladder is anechoic. Bilateral ureteral jets are seen. Cortical medullary differentiation maintained within the bilateral kidneys. IMPRESSION: Renal sizes as described. Probable simple cysts right kidney
== END | disposition home or self-care (01) ==
LOC: RADUSWWP 12:53
PROVIDERS: ATTEND Nurse Practitioner Family
DX: R10.9 Unspecified abdominal pain (principal)
CPT/HCPCS: 76770

== ENCOUNTER → 2018-10-13 | Outpatient (CLI) | payer MEDICARE, OTHER ==
--- NOTE | 2018-10-13 09:23 | US ---
EXAMINATION TYPE: US abdomen complete DATE OF EXAM: 10/13/2018 COMPARISON: US 06/07/18 CLINICAL HISTORY: R74.8 Elevated Liver Enzymes. EXAM MEASUREMENTS: Liver Length: 15.0 Gallbladder Wall: Surgically absent cm CBD: 0.4m Spleen: 8.1m Right Kidney: 11.3 x 5.4 x 4.8 cm Left Kidney: 11.4 x 4.5 x 4.2 cm Pancreas: Hyperechoic throughout Liver: No masses focal mass is seen. There is very minimally heterogenous hepatic echotexture althou gh there is appropriate visualization of the portal triads. Early hepatocellular disease is possible. Seen Gallbladder: Surgically absent Evidence for sonographic Hatfield's sign: No CBD: wnl Spleen: wnl Right Kidney: upper pole cysts noted: 1.9 x 1.3 x 1.3 cm this previously measured up to 1.5 cm on t he exam of 06/07/2018. Adjacent probable 1.4 cm cyst. This appears unchanged. Left Kidney: prominent column of Jeremy Upper IVC: wnl Abd Aorta: wnl The liver is very mildly heterogenous. The intrahepatic portion of the IVC and proximal abdominal ao rta are within normal limits. There is no evidence of cholelithiasis. Common bile duct is unremarka ble. The visualized portions of the pancreas are homogenous but hyperechoic. The spleen is unremark able. Kidneys are symmetric and free of hydronephrosis. IMPRESSION: 1. Very minimal heterogeneity of the hepatic parenchyma. In this patient with abnormal liver function tests this could represent very early hepatic steatosis. 2. Interval growth of the right upper pole renal cyst in comparison to the prior of 06/07/2018. Additio nal similar appearing approximately 1.47 m cyst. 3. Pancreas appears heterogenous and hyperechoic throughout. Although this may be artifactual. Correl ate with serum amylase and lipase.
== END | disposition home or self-care (01) ==
LOC: RADUSWWP 08:38
PROVIDERS: ATTEND Family Medicine
DX: N28.1 Cyst of kidney, acquired (principal); R94.5 Abnormal results of liver function studies
CPT/HCPCS: 76700

== ENCOUNTER → 2019-12-27 | Outpatient (CLI) | payer MEDICARE ==
--- NOTE | 2019-12-29 10:39 | MM ---
Reason for exam: screening (asymptomatic). Last mammogram was performed 1 year and 6 months ago. History: Patient is postmenopausal. Benign US left CoreBiopsy of the left breast, March 19, 2006. Physical Findings: A clinical breast exam by your physician is recommended on an annual basis and results should be correlated with mammographic findings. MG 3D Screening Mammo W/Cad Bilateral CC and MLO view(s) were taken. Prior study comparison: June 24, 2018, bilateral MG 3d screening mammo w/cad. May 13, 2017, bilateral MG 3d screening mammo w/cad. The breast tissue is heterogeneously dense. This may lower the sensitivity of mammography. Previous mammotome biopsy in the left breast. No significant changes when compared with prior studies. ASSESSMENT: Benign, BI-RAD 2 RECOMMENDATION: Routine screening mammogram of both breasts in 1 year.
== END | disposition home or self-care (01) ==
LOC: RADMAMWWP 16:28
PROVIDERS: ATTEND Family Medicine
DX: Z12.31 Encounter for screening mammogram for malignant neoplasm of breast (principal)
CPT/HCPCS: 77063; 77067

== ENCOUNTER 2020-06-08 08:47 | Day surgery (SDC) | payer MEDICARE ==
[2020-06-05 15:32] VITALS: BMI 29.8
[~2020-06-08 08:47] MED LIST changes: -SODIUM CHLORIDE 0.9% 1,000 ML IV SCH
[2020-06-08 09:06] VITALS: RESP 16; TEMP 98.6
[2020-06-08] MEDS ORDERED: LIDOCAINE 1% (10MG/ML) FOR IV START INTRADERMA ONE (09:17)
[2020-06-08] MEDS ORDERED: ONDANSETRON 4 MG/2 ML VIAL ONE (09:21)
[2020-06-08] MEDS ORDERED: LIDOCAINE 1% INJ 10MG/ML (20 ML MDV) ONE (10:18)
[2020-06-08] MEDS ORDERED: PROPOFOL 10 MG/ML 20 ML VIAL IV ONE (10:18)
--- NOTE | 2020-06-08 10:26 | P.PCN ---
Date of Procedure: 06/08/20 Procedure(s) Performed: BRIEF HISTORY: Patient is 69-year-old, pleasant, white female scheduled for an upper endoscopy as a part of evaluation of long-standing history of GERD. On AcipHex 20 mg daily. She is scheduled for an upper endoscopy to rule out complicated reflux disease.. PROCEDURE PERFORMED: Esophagogastroduodenoscopy With biopsy and. PREOPERATIVE DIAGNOSIS: []. IV sedation per anesthesia. PROCEDURE: After informed consent was obtained, the patient was brought into the endoscopy unit. IV sedation was administered by Anesthesia under continuous monitoring. Initially the Olympus GIF-140 video endoscope was inserted into the mouth. Esophagus intubated without any difficulty. It was gradually advanced into the stomach and duodenum and carefully examined. The bulb and the second part of the duodenum appeared normal. The scope at this time was withdrawn to the stomach, adequately insufflated with air, and upon careful examination, mucosa of the antrum, appeared normal. In the gastric body there were multiple gastric polyps identified which were biopsied. Rest of the body, cardia and the fundus appeared normal. The scope was then withdrawn into the esophagus. The GE junction was located at 41 cm from the incisors. small hiatal hernia noted. The esophagus appeared normal. There were no erosions or ulcerations seen and the patient tolerated the procedure well. IMPRESSION: 1. Multiple small gastric polyps in the gastric body the stomach. 2. Normal-appearing esophagus with no evidence of esophagitis or Parker's esophagus 3. Small hiatal hernia RECOMMENDATIONS: The findings of this examination were discussed with the patient as well as her family. She was advised to follow with the biopsy. She will continue with AcipHex 20 mg daily and follow antireflux measures..
[2020-06-08 10:51] VITALS: BP 160/88; PULSE 55
== END 2020-06-08 11:04 | disposition home or self-care (01) ==
LOC: ORWHC2ENDO 08:47
PROVIDERS: ATTEND Internal Medicine Gastroenterology
DX: K31.7 Polyp of stomach and duodenum (principal); K44.9 Diaphragmatic hernia without obstruction or gangrene; I10 Essential (primary) hypertension; K21.9 Gastro-esophageal reflux disease without esophagitis; E78.5 Hyperlipidemia, unspecified; I47.1 Supraventricular tachycardia; Z79.899 Other long term (current) drug therapy; Z88.0 Allergy status to penicillin; Z88.2 Allergy status to sulfonamides; Z88.1 Allergy status to other antibiotic agents; Z91.041 Radiographic dye allergy status
CPT/HCPCS: 88305; 43239; J2405; J2001; J2704

== ENCOUNTER → 2021-03-26 | Outpatient (CLI) | payer MEDICARE ==
--- NOTE | 2021-03-27 14:10 | MM ---
Reason for exam: screening (asymptomatic). Last mammogram was performed 1 year and 3 months ago. History: Patient is postmenopausal. Benign US left CoreBiopsy of the left breast, March 19, 2006. Physical Findings: A clinical breast exam by your physician is recommended on an annual basis and results should be correlated with mammographic findings. MG 3D Screening Mammo W/Cad Bilateral CC and MLO view(s) were taken. Prior study comparison: December 27, 2019, bilateral MG 3d screening mammo w/cad. June 24, 2018, bilateral MG 3d screening mammo w/cad. The breast tissue is heterogeneously dense. This may lower the sensitivity of mammography. Finding: There are indeterminate calcifications in the outer quadrant of the right breast. Previous mammotome biopsy in the left breast. There is a chronic nodularity in the left breast, stable. ASSESSMENT: Incomplete: need additional imaging evaluation, BI-RAD 0 RECOMMENDATION: Special view mammogram of the right breast. [facility] will attempt to contact patient to return for supplemental views.
== END | disposition home or self-care (01) ==
LOC: RADMAMWWP 10:49
PROVIDERS: ATTEND Family Medicine
DX: Z12.31 Encounter for screening mammogram for malignant neoplasm of breast (principal)
CPT/HCPCS: 77063; 77067

== ENCOUNTER → 2021-04-02 | Outpatient (CLI) | payer MEDICARE ==
--- NOTE | 2021-04-02 11:54 | MM ---
Reason for exam: additional evaluation requested from abnormal screening. Last mammogram was performed less than 1 month ago. History: Patient is postmenopausal. Benign US left CoreBiopsy of the left breast, March 19, 2006. Physical Findings: Nurse did not find any significant physical abnormalities on exam. MG 3D Work Up W/Cad RT CC with magnification, LM with magnification, and LM view(s) were taken of the right breast. Prior study comparison: March 26, 2021, bilateral MG 3d screening mammo w/cad. December 27, 2019, bilateral MG 3d screening mammo w/cad. The breast tissue is heterogeneously dense. This may lower the sensitivity of mammography. Grouped 10 o'clock right breast calcifications appear round and punctate. They appear to have been present previously but now slightly increased. 6 month follow up recommended. These results were verbally communicated with the patient and result sheet given to the patient on 04/02/21. ASSESSMENT: Probably benign, BI-RAD 3 RECOMMENDATION: Follow-up diagnostic mammogram of the right breast in 6 months.
== END | disposition home or self-care (01) ==
LOC: RADMAMWWP 10:38
PROVIDERS: ATTEND Family Medicine
DX: R92.8 Other abnormal and inconclusive findings on diagnostic imaging of breast (principal)
CPT/HCPCS: 77065; G0279; 77061

== ENCOUNTER → 2021-04-09 | Outpatient (CLI) | payer MEDICARE ==
--- NOTE | 2021-04-09 16:33 | US ---
EXAMINATION TYPE: US thyroid st tissue head/neck DATE OF EXAM: 04/09/2021 COMPARISON: US 2019 CLINICAL HISTORY: E04.1 Notoxic single thyroid nodule. GLAND SIZE: Right Lobe: 4.9 x 1.1 x 1.4 cm Overall Parenchyma: homogenous Left Lobe: 3.8 x 1.6 x 1.2 cm Overall Parenchyma: heterogeneous Isthmus Thickness: 0.3 cm NODULES RIGHT: # of nodules measured on right: 1 1. 0.7 X 0.5 x 0.6 cm, lower medial, mixed cystic and solid, hypoechoic nodule, which is wider than tall, with smooth margins, without echogenic foci. TR 3 Prior size: 0.4 x 0.3 x 0.3 cm LEFT: # of nodules measured on left: multiple subcentimeter nodules seen with largest describe below 1. 0.7 X 0.7 x 0.6 cm, mid medial, calcification with hypoechoic rim, which is taller than wide, wi th smooth margins. Prior size: 0.4 cm ISTHMUS: # of nodules measured in the isthmus: 0 Bilateral neck scanned, no evidence of lymphadenopathy. IMPRESSION: 1. Mildly suspicious nodule. Consider follow-up. 2017 ACR TI-RADS LEVEL: TR-RADS 3 - Mildly Suspicious: Follow if > 1.5 cm, FNA if > 2.5 cm *Highest TI-RADS level nodule reported
== END | disposition home or self-care (01) ==
LOC: RADUSWWP 09:17
PROVIDERS: ATTEND Family Medicine
DX: E04.1 Nontoxic single thyroid nodule (principal)
CPT/HCPCS: 76536

== ENCOUNTER 2021-06-30 21:15 | Emergency (ER) | payer MEDICARE ==
[2021-06-30 22:14] LABS: Appearance,Urine Clear (Clear); Bilirubin,Urine Negative (Negative); Blood,Urine Small (Negative); Color,Urine Light Yellow; Glucose,Urine (UA) Negative (Negative); Ketones,Urine Negative (Negative); Leukocyte Esterase,Urine Trace (Negative); Nitrite,Urine Negative (Negative); PH, Urine 7.5 (5.0-8.0); Protein,Urine Negative (Negative); RBC,Urine 3 /hpf (0-5); Specific Gravity,Urine 1.009 (1.001-1.035); Urobilinogen,Urine <2.0 mg/dL (<2.0); WBC,Urine 2 /hpf (0-5)
--- NOTE | 2021-07-01 00:52 | ED ---
Recheck HPI - General Chief Complaint: Headache Stated Complaint: Headache, High blood pressure Time Seen by Provider: 07/01/21 00:18 Source: patient, family, RN notes reviewed, old records reviewed Mode of arrival: ambulatory Limitations: no limitations - History of Present Illness Initial Comments: This is a 71-year-old female DF for evaluation. She is presented today for evaluation of headache. Patient currently is without headache, concern for blood pressure blood pressures been elevated. During history of present illness patient becomes very sad and tearful. States that she has a lot of caregiver anxiety for both family member she is taking care of. No associated blood pressure and was severely elevated. Blood pressure remains elevated here in the ER states she was 4 years ago diagnosed with high blood pressure but never started on medication. Otherwise noted no other complaints. No current chest pain or tingling in arms or legs MD Complaint: abnormal lab (Elevated blood pressure) -: unknown Returns Today for: persistent/worsening pain related to initial visit Symptoms Since Prior Visit: no new symptoms Context: planned re-check Associated Symptoms: none Treatments Prior to Arrival: Given Pain Meds on - Related Data Home Medications Medication Instructions Recorded Confirmed Cholecalciferol [Vitamin D3] 1,000 unit PO DAILY 06/11/16 06/05/20 FLUoxetine HCL [PROzac] 30 mg PO DAILY 06/11/16 06/05/20 ALPRAZolam [Xanax] 0.25 mg PO TID PRN 07/15/16 06/05/20 Manganese 15 mg PO DAILY 07/15/16 06/05/20 Culturelle Tab 1 tab PO DAILY 06/05/20 06/05/20 RABEprazole SODIUM [Aciphex] 20 mg PO AC-SUPPER 06/05/20 06/05/20 Repairvite Powder 1 applicate PO DAILY 06/05/20 06/05/20 Allergies Allergy/AdvReac Type Severity Reaction Status Date / Time azithromycin [From Zithromax] Allergy Diarrhea Verified 06/30/21 21:47 cephalexin Allergy Rash/Hives Verified 06/30/21 21:47 clindamycin Allergy BURNING Verified 06/30/21 21:47 TONGUE, NAUSEA levofloxacin [From Levaquin] Allergy COULD NOT Verified 06/30/21 21:47 SLEEP nitrofurantoin Allergy Unknown Verified 06/30/21 21:47 [From Macrobid] Penicillins Allergy Rash/Hives Verified 06/30/21 21:47 Yjjynix-IEA-LnW Reductase Allergy ACHY, Verified 06/30/21 21:47 Inhibitor MISERABLE [Uwqefdn-Rsq-Xsl Reductase Inhibitor] sulfamethoxazole Allergy Nausea & Verified 06/30/21 21:47 [From Bactrim] Vomiting trimethoprim [From Bactrim] Allergy Nausea & Verified 06/30/21 21:47 Vomiting clarithromycin [From Biaxin] AdvReac Abdominal Verified 06/30/21 21:47 Pain Iodinated Contrast Media AdvReac Nausea & Verified 06/30/21 21:47 [Iodinated Contrast Media - Vomiting Oral and] Sulfa (Sulfonamide AdvReac Nausea & Verified 06/30/21 21:47 Antibiotics) Vomiting viomycin [Viomycin] AdvReac Nausea & Verified 06/30/21 21:47 Vomiting DECONGESTANTS Allergy Rapid Uncoded 06/30/21 21:47 Heart Rate SUDAFEDRINE AdvReac Rapid Uncoded 06/30/21 21:47 Heart Rate Review of Systems ROS Statement: Those systems with pertinent positive or pertinent negative responses have been documented in the HPI. ROS Other: All systems not noted in ROS Statement are negative. 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 ORIF LT Ankle. EXC CYST LT BREAST. Past Anesthesia/Blood Transfusion Reactions: Motion Sickness, Postoperative Nausea & Vomiting (PONV) Past Psychological History: Anxiety, Depression, Panic Disorder Smoking Status: Former smoker Past Alcohol Use History: None Reported Past Drug Use History: None Reported - Past Family History Mother History Unknown: Yes Family Medical History: Hypertension Father Family Medical History: Chest Pain / Angina, Coronary Artery Disease (CAD) Brother(s) Family Medical History: Myocardial Infarction (MA) Additional Family Medical History / Comment(s): 2 brothers with schizophrenia General Exam Limitations: no limitations General appearance: alert, in no apparent distress Head exam: Present: atraumatic, normocephalic, normal inspection Eye exam: Present: normal appearance, PERRL, EOMI. Absent: scleral icterus, conjunctival injection, periorbital swelling ENT exam: Present: normal exam, mucous membranes moist Neck exam: Present: normal inspection. Absent: tenderness, meningismus, lymphadenopathy Respiratory exam: Present: normal lung sounds bilaterally. Absent: respiratory distress, wheezes, rales, rhonchi, stridor Cardiovascular Exam: Present: regular rate, normal rhythm, normal heart sounds. Absent: systolic murmur, diastolic murmur, rubs, gallop, clicks GI/Abdominal exam: Present: soft, normal bowel sounds. Absent: distended, tenderness, guarding, rebound, rigid Extremities exam: Present: normal inspection, full ROM, normal capillary refill. Absent: tenderness, pedal edema, joint swelling, calf tenderness Back exam: Present: normal inspection Neurological exam: Present: alert, oriented X3, CN II-XII intact Psychiatric exam: Present: normal affect, normal mood Skin exam: Present: warm, dry, intact, normal color. Absent: rash Course Vital Signs 06/30/21 07/01/21 07/01/21 21:42 01:17 01:51 Temperature 98.5 F Pulse Rate 67 68 57 L Respiratory 22 18 18 Rate Blood Pressure 192/103 198/93 172/88 O2 Sat by Pulse 97 99 94 L Oximetry - Reevaluation(s) Reevaluation #1: 07/01/21 00:59 Medical record is reviewed Reevaluation #2: 07/01/21 00:59 Patient symptoms remain unchanged in the ER, no headache no complaints Reevaluation #3: 07/01/21 00:59 Patient's blood pressure improved by itself here in the ER, will follow-up with primary care regarding further management Medical Decision Making - Medical Decision Making 71 female to the ER for evaluation. Patient presents today for evaluation regards to elevated blood pressure. Concerned over blood pressure. Patient will follow-up with primary care regarding further blood pressure management - Lab Data Lab Results 06/30/21 Range/Units 21:50 Urine Color Light Yellow Urine Appearance Clear (Clear) Urine pH 7.5 (5.0-8.0) Ur Specific [place] 1.009 (1.001-1.035) Urine Protein Negative (Negative) Urine Glucose (UA) Negative (Negative) Urine Ketones Negative (Negative) Urine Blood Small H (Negative) Urine Nitrite Negative (Negative) Urine Bilirubin Negative (Negative) Urine Urobilinogen <2.0 (<2.0) mg/dL Ur Leukocyte Esterase Trace H (Negative) Urine RBC 3 (0-5) /hpf Urine WBC 2 (0-5) /hpf Disposition Clinical Impression: Hypertension Disposition: HOME SELF-CARE Condition: Good Instructions (If sedation given, give patient instructions): Hypertension (ED) Is patient prescribed a controlled substance at d/c from ED?: No Referrals: Eze Phillips MD [Primary Care Provider] - 1-2 days
[2021-07-01 01:19] VITALS: RESP 18
[2021-07-01] MEDS ORDERED: cloNIDine HCL 0.1 MG TAB PO STA (02:09)
[2021-07-01 02:25] VITALS: BP 177/98; PULSE 69; TEMP 97.8
== END 2021-07-01 02:25 | disposition home or self-care (01) ==
LOC: EC 21:15
DX: I10 Essential (primary) hypertension (principal); Z88.1 Allergy status to other antibiotic agents; Z88.3 Allergy status to other anti-infective agents; Z88.0 Allergy status to penicillin; Z88.5 Allergy status to narcotic agent; Z87.891 Personal history of nicotine dependence
CPT/HCPCS: 81001; 99284

== ENCOUNTER → 2021-10-03 | Outpatient (CLI) | payer MEDICARE ==
--- NOTE | 2021-10-03 11:15 | MM ---
Reason for Exam: Follow-up at short interval from prior study. Last screening mammogram was performed 6 month(s) ago. Patient History: Menarche at age 18. First Full-Term at age 29. Left ovary removed at age 53. Right ovary removed at age 53. Hysterectomy at age 53. Postmenopausal. 03/19/2006, Benign Core Biopsy on the left side. Risk Values: Ruth 5 year model risk: 2.1%. NCI Lifetime model risk: 6.0%. Prior Study Comparison: 12/27/2019 Bilateral Screening Mammogram, [facility]. 03/26/2021 Bilateral Screening Mammogram, [facility]. 04/02/2021 Right Diagnostic Mammogram, [facility]. Tissue Density: Right: The breast tissue is heterogeneously dense. This may lower the sensitivity of mammography. Findings: Analyzed By CAD. Calcifications seen previously remains stable. No new clusters are seen. No evidence for mass lesion or distortion. Overall Assessment: Probably benign, BI-RAD 3 Management: Diagnostic Mammogram of both breasts in 6 months. A clinical breast exam by your physician is recommended on an annual basis and results should be correlated with mammographic findings. This exam should not preclude additional follow-up of suspicious palpable abnormalities. Results were given to the patient verbally at the time of exam. Electronically signed and approved by: Samy Collins M.D. Radiologis
== END | disposition home or self-care (01) ==
LOC: RADMAMWWP 10:46
PROVIDERS: ATTEND Family Medicine
DX: R92.8 Other abnormal and inconclusive findings on diagnostic imaging of breast (principal)
CPT/HCPCS: 77065; G0279; 77061

== ENCOUNTER → 2022-04-18 | Outpatient (CLI) | payer MEDICARE ==
--- NOTE | 2022-04-18 10:27 | MM ---
Reason for Exam: Additional evaluation requested from prior study. Last mammogram was performed 1 year(s) and 1 month(s) ago. Patient History: Menarche at age 18. First Full-Term at age 29. Left ovary removed at age 53. Right ovary removed at age 53. Hysterectomy at age 53. Postmenopausal. 03/19/2006, Benign Core Biopsy on the left side. Risk Values: Ruth 5 year model risk: 2.1%. NCI Lifetime model risk: 6.0%. Tissue Density: The breast tissue is heterogeneously dense. This may lower the sensitivity of mammography. Findings: Analyzed By CAD. No new suspicious mass or worrisome cluster microcalcifications within either breast. Stable benign-appearing calcifications within both breasts. Previous mammotome biopsy within the left breast. Overall Assessment: Benign, BI-RAD 2 Management: Screening Mammogram of both breasts in 1 year. A clinical breast exam by your physician is recommended on an annual basis and results should be correlated with mammographic findings. This exam should not preclude additional follow-up of suspicious palpable abnormalities. Results were given to the patient verbally at the time of exam. Electronically signed and approved by: Guy Bagley D.O.
== END | disposition home or self-care (01) ==
LOC: RADMAMWWP 09:55
PROVIDERS: ATTEND Family Medicine
DX: R92.8 Other abnormal and inconclusive findings on diagnostic imaging of breast (principal); Z78.0 Asymptomatic menopausal state; Z98.890 Other specified postprocedural states
CPT/HCPCS: 77066; G0279; 77062

== ENCOUNTER → 2022-12-10 | Outpatient (CLI) | payer MEDICARE ==
[2022-12-10 16:02] LABS: ALT 191 U/L (8-44); AST 161 U/L (13-35); Albumin 3.9 d/dL (3.8-4.9); Albumin/Globulin Ratio 1.05 Ratio (1.60-3.17); Alkaline Phosphatase 131 U/L (41-126); BUN/Creat Ratio 16.38 Ratio (12.00-20.00); Blood Urea Nitrogen 13.1 mg/dL (9.0-27.0); Calcium 9.4 mg/dL (8.7-10.3); Carbon Dioxide 24.5 mmol/L (21.6-31.8); Chloride 102 mmol/L (96-109); Globulin 3.7 d/dL (1.6-3.3); Glucose 123 mg/dL (70-110); Potassium 4.5 mmol/L (3.5-5.5); Sodium 137 mmol/L (135-145); Total Bilirubin 0.9 mg/dL (0.3-1.2); Total Protein 7.6 d/dL (6.2-8.2)
== END | disposition home or self-care (01) ==
LOC: LABWHC1 11:18
PROVIDERS: ATTEND Internal Medicine Gastroenterology
DX: R74.01 Elevation of levels of liver transaminase levels (principal)
CPT/HCPCS: 36415; 80053

== ENCOUNTER → 2022-12-22 | Outpatient (CLI) | payer MEDICARE ==
[2022-12-22 14:35] LABS: ALT 232 U/L (8-44); AST 195 U/L (13-35); Albumin 4.1 d/dL (3.8-4.9); Albumin/Globulin Ratio 0.93 Ratio (1.60-3.17); Alkaline Phosphatase 142 U/L (41-126); BUN/Creat Ratio 14.44 Ratio (12.00-20.00); Calcium 9.7 mg/dL (8.7-10.3); Chloride 102 mmol/L (96-109); Globulin 4.4 d/dL (1.6-3.3); Glucose 102 mg/dL (70-110); Potassium 5.1 mmol/L (3.5-5.5); Sodium 138 mmol/L (135-145); Total Bilirubin 1.3 mg/dL (0.3-1.2); Total Protein 8.5 d/dL (6.2-8.2)
== END | disposition home or self-care (01) ==
LOC: LABWHC1 08:41
PROVIDERS: ATTEND Internal Medicine Gastroenterology
DX: R74.01 Elevation of levels of liver transaminase levels (principal)
CPT/HCPCS: 36415; 80053

== ENCOUNTER 2023-02-11 07:49 | Day surgery (SDC) | payer MEDICARE ==
[2023-02-11] MEDS ORDERED: HYDROmorphone 0.5 MG/0.5 ML SYRINGE IVP PRN (08:47)
[2023-02-11] MEDS ORDERED: ALPRAZolam 0.25 MG TAB PO PRN (08:47)
[2023-02-11 08:58] LABS: Basophils % (A) 1 %; Eosinophils # (A) 0.2 k/uL (0-0.7); Eosinophils % (A) 3 %; HGB 14.5 gm/dL (11.4-16.0); Lymphocytes # (A) 1.7 k/uL (1.0-4.8); Lymphocytes % (A) 24 %; MCH 31.7 pg (25.0-35.0); MCHC 33.7 g/dL (31.0-37.0); MCV 94.1 fL (80.0-100.0); Mean Platelet Volume 8.9; Monocytes # (A) 0.4 k/uL (0-1.0); Monocytes % (A) 6 %; Neutrophils # (A) 4.5 k/uL (1.3-7.7); Neutrophils % (A) 65 %; Platelet Count 216 k/uL (150-450); RBC 4.57 m/uL (3.80-5.40); RDW 13.6 % (11.5-15.5); WBC 6.9 k/uL (3.8-10.6)
[2023-02-11 09:03] LABS: INR 1.1 (<1.2); Prothrombin Time 12.3 sec (10.0-12.5)
[2023-02-11 09:14] LABS: ALT 105 U/L (4-34); African American GFR (CKD) >90 (>60 ml/min/1.73 sqM); Anion Gap 9 mmol/L; Blood Urea Nitrogen 16 mg/dL (7-17); Calcium 9.4 mg/dL (8.4-10.2); Carbon Dioxide 26 mmol/L (22-30); Chloride 104 mmol/L (98-107); Glucose 102 mg/dL (74-99); Non-African American GFR(CKD) 87 (>60 ml/min/1.73 sqM); Sodium 139 mmol/L (137-145); Total Bilirubin 1.3 mg/dL (0.2-1.3); Total Protein 8.4 g/dL (6.3-8.2)
[2023-02-11 09:19] LABS: AST 115 U/L (14-36); Albumin 4.1 g/dL (3.5-5.0); Alkaline Phosphatase 88 U/L (38-126); Potassium 4.5 mmol/L (3.5-5.1)
[2023-02-11 09:26] VITALS: TEMP 98.1
[2023-02-11] MEDS ORDERED: HYDROcodone/APAP 5-325MG 1 EACH TAB PO PRN (09:43)
--- NOTE | 2023-02-11 10:23 | CT ---
EXAMINATION TYPE: CT biopsy liver DATE OF EXAM: 02/11/2023 COMPARISON: NONE HISTORY: Elevated LFTs CT DLP: 986mGycm The procedure was explained to the patient. The risks, complications, benefits, and alternatives wer e discussed and any questions were answered. Informed consent was obtained. Patient was placed supi ne on the CT table and prepped and draped in the usual sterile fashion. All elements of maximal barrier and sterile technique utilized. Utilizing CT guidance, an 18 gauge core biopsy needle access into the left lobe of the liver was ach ieved and a single 18 gauge core sample was obtained. The patient was stable throughout the procedur e and remained stable upon discharge. IMPRESSION: 1. Successful 18 gauge core biopsy of the liver.
[2023-02-11 10:41] VITALS: RESP 16
[2023-02-11 16:49] VITALS: BP 134/71; PULSE 69
== END 2023-02-11 13:44 | disposition home or self-care (01) ==
LOC: RADPROMAIN 07:49
PROVIDERS: ATTEND Internal Medicine Gastroenterology
DX: K75.9 Inflammatory liver disease, unspecified (principal)
CPT/HCPCS: 80053; 85025; 85610; 88313; 88307; 36415; 47000; 77012; J1170

== ENCOUNTER → 2023-03-11 | Outpatient (CLI) | payer MEDICARE ==
--- NOTE | 2023-03-11 13:49 | CT ---
EXAMINATION TYPE: CT brain wo con DATE OF EXAM: 03/11/2023 HISTORY: headaches, left jaw stiffness CT DLP: 1116 mGycm. Automated Exposure Control for Dose Reduction was Utilized. TECHNIQUE: CT scan of the head is performed without contrast. COMPARISON: None. FINDINGS: There is no acute intracranial hemorrhage or midline shift identified. There is mild diff use ventricular and sulcal prominence consistent with diffuse age-related cerebral atrophy. There is mild low-attenuation in the periventricular white matter most likely consistent with chronic small v essel ischemic change in patient of this age. The globes are intact and the visualized sinuses are c lear. IMPRESSION: No acute intracranial hemorrhage or midline shift. There is mild diffuse age-related ce rebral atrophy and chronic small vessel ischemic change noted.
--- NOTE | 2023-03-11 13:51 | CT ---
EXAMINATION TYPE: CT cervical spine wo con DATE OF EXAM: 03/11/2023 COMPARISON: NONE HISTORY: left side neck pain, down into left shoulder CT DLP: 638.1 mGycm. Automated Exposure Control for Dose Reduction was Utilized. TECHNIQUE: CT scan of the cervical spine is obtained without contrast, axial images are obtained, sa gittal and coronal reformatted images are also reviewed. FINDINGS: Osseous structures are demineralized. Cervical spine is visualized in its entirety from C1 through upper thoracic levels, demonstrates satisfactory alignment without evidence of acute fracture or dislocation. Prevertebral soft tissue appears within normal limits. The C1-C2 articulation is w ithin normal limits on the coronal images. Vertebral body heights are maintained. There is moderate d isc space narrowing at C4-C5 and C6-C7 levels. Moderate spurring is seen C6-C7 level. Posterior spurr ing and/or spur disc complexes efface the anterior thecal sac C4-C5 through C6-C7 level. Review of axial images shows multilevel uncovertebral facet degenerative changes bilaterally more pro minent on the left causing multilevel neural foraminal narrowing. Thyroid gland is felt within normal limits. Visualized lung apices are clear without pneumothorax seen. IMPRESSION: Multilevel degenerative changes are present as detailed above. No acute findings are see n. MRI noted more sensitive to evaluate.
== END | disposition home or self-care (01) ==
LOC: RADCTMAIN 13:12
PROVIDERS: ATTEND Family Medicine
DX: G31.1 Senile degeneration of brain, not elsewhere classified (principal); M47.812 Spondylosis without myelopathy or radiculopathy, cervical region; M50.321 Other cervical disc degeneration at C4-C5 level; R20.2 Paresthesia of skin; R51.9 Headache, unspecified; I67.82 Cerebral ischemia
CPT/HCPCS: 70450; 72125

== ENCOUNTER → 2023-03-20 | Outpatient (CLI) | payer MEDICARE ==
--- NOTE | 2023-03-22 21:23 | MR ---
EXAMINATION TYPE: MR cervical spine wo con DATE OF EXAM: 03/20/2023 COMPARISON: None HISTORY: 72-year-old female M48.02, spinal stenosis cervical region, Neck pain into left shoulder TECHNIQUE: Multiplanar, multisequence images of the cervical spine were acquired without contrast. FINDINGS: No craniocervical junction are rounded, predental space widening, or prevertebral soft tissue swellin g. Reversal of the normal cervical lordosis but otherwise with preserved alignment. Mild to moderate multilevel degenerative disc disease with desiccated, mildly narrowed, and bulging d iscs. Disc osteophyte complexes particularly at C4-C7 levels. Some corresponding ligamentum flavum thickening mid to lower cervical spine. Multilevel facet and unc overtebral joint arthropathy is present. Changes result in moderate focal spinal canal stenosis at C5-C6 and C6-C7 with impression and flatten ing on both the dorsal and ventral cord and AP canal dimension narrowing down to 5.5 mm. Mild overall narrowing of the spinal canal C4-C5. At C3-C4, moderate left neuroforaminal stenosis. At C4-C5, there is moderate to severe bilateral neuroforaminal stenosis. At C5-C6, severe bilateral neuroforaminal stenosis. In addition, there is a large left paracentral di sc osteophyte complex preferentially impressing on to the left ventral aspect of the cord. At C6-C7, moderate right and mild left neuroforaminal stenosis. At C7-T1, mild left neuroforaminal narrowing. No suspicious bone marrow replacement. Normal course and signal intensity of the cervical spinal cord. IMPRESSION: 1. Moderate multilevel spondylotic change. Reversal of the normal cervical lordosis could be position al or due to muscle spasm. 2. Disc osteophyte complexes in combination with ligamentum flavum thickening contributes to moderate focal spinal canal stenoses at C5-C6 and C6-C7. There is impression and slight flattening of both th e dorsal and ventral aspect of the cord but without lia cord compression. No myelopathic cord signa l change. An asymmetric left paracentral disc osteophyte complex at C5-C6 preferentially indents the left ventral aspect of the cord. 3. Variable neuroforaminal stenoses as outlined above.
== END | disposition home or self-care (01) ==
LOC: RADMRIMAIN 14:19
PROVIDERS: ATTEND Family Medicine
DX: M48.02 Spinal stenosis, cervical region (principal); M47.812 Spondylosis without myelopathy or radiculopathy, cervical region; M99.71 Connective tissue and disc stenosis of intervertebral foramina of cervical region; M25.78 Osteophyte, vertebrae
CPT/HCPCS: 72141

== ENCOUNTER → 2023-04-20 | Outpatient (CLI) | payer MEDICARE ==
--- NOTE | 2023-04-21 12:10 | MM ---
Reason for Exam: Screening (asymptomatic). Last screening mammogram was performed 12 month(s) ago. Patient History: Menarche at age 18. First Full-Term at age 29. Left ovary removed at age 53. Right ovary removed at age 53. Hysterectomy at age 53. Postmenopausal. 03/19/2006, Benign Core Biopsy on the left side. Risk Values: Ruth 5 year model risk: 2.1%. NCI Lifetime model risk: 5.8%. Prior Study Comparison: 04/02/2021 Right Diagnostic Mammogram, [facility]. 10/03/2021 Right MG 3D diag mammo w/cad [facility], [facility]. 04/18/2022 Bilateral MG 3D diag mammo w/cad [facility], [facility]. Tissue Density: The breast tissue is heterogeneously dense. This may lower the sensitivity of mammography. Findings: Analyzed By CAD. Left breast biopsy clip. There is no suspicious group of microcalcifications or new suspicious mass. Overall Assessment: Benign, BI-RAD 2 Management: Screening Mammogram of both breasts in [address] [facility] will attempt to contact patient to return for supplemental views and ultrasound if indicated. Patient should continue monthly self-breast exams. A clinical breast exam by your physician is recommended on an annual basis. This exam should not preclude additional follow-up of suspicious palpable abnormalities. Note on Ruth scores and lifetime risk: 1. A Ruth score greater than 3% is considered moderate risk. If this is the case, consider specialist referral to assess eligibility for a risk reducing agent. 2. If overall lifetime risk for the development of breast cancer is 20% or higher, the patient may qualify for future screening with alternating mammogram and breast MRI. Electronically signed and approved by: Nam Maxwell DO
== END | disposition home or self-care (01) ==
LOC: RADMAMWWP 10:51
PROVIDERS: ATTEND Family Medicine
DX: Z12.31 Encounter for screening mammogram for malignant neoplasm of breast (principal); Z78.0 Asymptomatic menopausal state
CPT/HCPCS: 77063; 77067

== ENCOUNTER → 2023-04-27 | Outpatient (CLI) | payer MEDICARE ==
[2023-04-27 15:13] LABS: Basophils # (A) 0.08 X 10*3/uL (0.00-0.10); Basophils % (A) 0.5 %; Eosinophils # (A) 0.03 X 10*3/uL (0.04-0.35); Eosinophils % (A) 0.2 %; Lymphocytes # (A) 1.69 X 10*3/uL (0.90-5.00); Lymphocytes % (A) 10.4 %; MCH 31.3 pg (27.0-32.0); MCHC 33.3 g/dL (32.0-37.0); MCV 93.8 FL (80.0-97.0); Mean Platelet Volume 10.5 FL (9.5-12.2); Monocytes # (A) 0.97 X 10*3/uL (0.20-1.00); NRBC Per 100 WBC 0 X 10*3/uL (0.00-0.01); Neutrophils # (A) 13.41 X 10*3/uL (1.80-7.70); Neutrophils % (A) 82.3 %; Platelet Count 280 X 10*3/uL (140-440); WBC 16.27 X 10*3/uL (4.50-10.00)
[2023-04-27 17:01] LABS: ALT 25 U/L (8-44); AST 23 U/L (13-35); Albumin 4.1 g/dL (3.8-4.9); Albumin/Globulin Ratio 1.58 Ratio (1.60-3.17); Alkaline Phosphatase 73 U/L (41-126); BUN/Creat Ratio 19.25 Ratio (12.00-20.00); Blood Urea Nitrogen 15.4 mg/dL (9.0-27.0); Calcium 9.5 mg/dL (8.7-10.3); Carbon Dioxide 24.4 mmol/L (21.6-31.8); Chloride 100 mmol/L (96-109); Globulin 2.6 g/dL (1.6-3.3); Glucose 99 mg/dL (70-110); Potassium 4.6 mmol/L (3.5-5.5); Sodium 136 mmol/L (135-145); Total Bilirubin 0.6 mg/dL (0.3-1.2); Total Protein 6.7 g/dL (6.2-8.2)
== END | disposition home or self-care (01) ==
LOC: LABWHC1 12:16
PROVIDERS: ATTEND Internal Medicine Gastroenterology
DX: K75.4 Autoimmune hepatitis (principal)
CPT/HCPCS: 36415; 80053; 85025

== ENCOUNTER → 2023-07-22 | Outpatient (CLI) | payer MEDICARE ==
[2023-07-22 11:22] LABS: Basophils # (A) 0.12 X 10*3/uL (0.00-0.10); Basophils % (A) 1.8 %; Eosinophils # (A) 0.17 X 10*3/uL (0.04-0.35); Eosinophils % (A) 2.6 %; HCT 47.4 % (37.2-46.3); HGB 15.2 g/dL (12.0-15.0); Lymphocytes # (A) 1.65 X 10*3/uL (0.90-5.00); Lymphocytes % (A) 25.4 %; MCH 31.2 pg (27.0-32.0); MCHC 32.1 g/dL (32.0-37.0); MCV 97.3 FL (80.0-97.0); Mean Platelet Volume 11.4 FL (9.5-12.2); Monocytes # (A) 0.55 X 10*3/uL (0.20-1.00); Monocytes % (A) 8.5 %; NRBC Per 100 WBC 0 X 10*3/uL (0.00-0.01); Neutrophils # (A) 3.99 X 10*3/uL (1.80-7.70); Neutrophils % (A) 61.4 %; Platelet Count 228 X 10*3/uL (140-440); RBC 4.87 X 10*6/uL (4.10-5.20); RDW 12.6 % (11.5-14.5)
[2023-07-22 11:43] LABS: ALT 17 U/L (8-44); AST 51 U/L (13-35); Albumin/Globulin Ratio 1.48 Ratio (1.60-3.17); Alkaline Phosphatase 77 U/L (41-126); BUN/Creat Ratio 16.12 Ratio (12.00-20.00); Blood Urea Nitrogen 12.9 mg/dL (9.0-27.0); Calcium 9.4 mg/dL (8.7-10.3); Carbon Dioxide 24.3 mmol/L (21.6-31.8); Chloride 101 mmol/L (96-109); Globulin 2.7 g/dL (1.6-3.3); Glucose 105 mg/dL (70-110); Potassium 4.8 mmol/L (3.5-5.5); Sodium 138 mmol/L (135-145); Total Bilirubin 0.7 mg/dL (0.3-1.2); Total Protein 6.7 g/dL (6.2-8.2)
== END | disposition home or self-care (01) ==
LOC: LABWHC1 08:13
PROVIDERS: ATTEND Nurse Practitioner Family
DX: K75.4 Autoimmune hepatitis (principal)
CPT/HCPCS: 36415; 80053; 85025

== ENCOUNTER 2023-08-20 20:36 | Emergency (ER) | payer MEDICARE ==
[2023-08-20 21:02] LABS: Glucose,Whole Blood 95 mg/dL (70-110)
[2023-08-20 21:03] VITALS: TEMP 98.5
[2023-08-20 21:37] LABS: Basophils # (A) 0.1 k/uL (0-0.2); Basophils % (A) 1 %; Eosinophils # (A) 0.3 k/uL (0-0.7); Eosinophils % (A) 3 %; HCT 46.3 % (34.0-46.0); Lymphocytes # (A) 2.2 k/uL (1.0-4.8); Lymphocytes % (A) 24 %; MCH 30.7 pg (25.0-35.0); MCHC 32.4 g/dL (31.0-37.0); MCV 94.8 fL (80.0-100.0); Monocytes # (A) 0.6 k/uL (0-1.0); Monocytes % (A) 6 %; Neutrophils # (A) 5.9 k/uL (1.3-7.7); Neutrophils % (A) 64 %; Platelet Count 315 k/uL (150-450); RBC 4.88 m/uL (3.80-5.40); RDW 12.1 % (11.5-15.5); WBC 9.2 k/uL (3.8-10.6)
[2023-08-20 21:43] LABS: ALT 17 U/L (4-34); AST 32 U/L (14-36); African American GFR (CKD) 85 (>60 ml/min/1.73 sqM); Albumin 4.2 g/dL (3.5-5.0); Alkaline Phosphatase 87 U/L (38-126); Anion Gap 6 mmol/L; Blood Urea Nitrogen 12 mg/dL (7-17); Calcium 9.5 mg/dL (8.4-10.2); Carbon Dioxide 28 mmol/L (22-30); Chloride 103 mmol/L (98-107); Creatine Kinase 84 U/L (30-135); Glucose 103 mg/dL (74-99); Non-African American GFR(CKD) 74 (>60 ml/min/1.73 sqM); Potassium 3.8 mmol/L (3.5-5.1); Sodium 137 mmol/L (137-145); Total Bilirubin 0.6 mg/dL (0.2-1.3)
[2023-08-20 21:52] LABS: Prothrombin Time 11.1 sec (10.0-12.5)
--- NOTE | 2023-08-20 22:08 | CT ---
EXAMINATION TYPE: CT brain wo con DATE OF EXAM: 08/20/2023 HISTORY: pt thinks she is having a reaction to azathioprine, has been taking it since april. blurre d vision x3 days slurred speech since april but has worsened over last 3 days. +fatigue, +hematuri a, +nausea and decreased appetite CT DLP: 1168.3 mGycm. Automated Exposure Control for Dose Reduction was Utilized. TECHNIQUE: CT scan of the head is performed without contrast. COMPARISON: CT 03/11/2023 FINDINGS: There is no intracranial hemorrhage, mass, or mass effect. No definite new attenuation defect. No extra-axial fluid collection. The paranasal sinuses and middle ear cavities and mastoid sinus air cells are aerated. Orbits are unr emarkable. Calvarium is unremarkable. IMPRESSION: No acute process.
--- NOTE | 2023-08-20 22:12 | XR ---
EXAMINATION: XR chest 2V: 08/20/2023 9:59 PM CLINICAL INDICATION: altered mental status TECHNIQUE: Departmental protocol COMPARISON: 06/21/2016 FINDINGS: The lungs are clear. The pleural spaces are negative. The cardiac silhouette is not enlarged. The skeletal structures and soft tissues are negative for acute findings. IMPRESSION: No acute radiographic process.
[2023-08-20 23:41] LABS: Appearance,Urine Clear (Clear); Bilirubin,Urine Negative (Negative); Blood,Urine Trace (Negative); Color,Urine Colorless; Glucose,Urine (UA) Negative (Negative); Ketones,Urine Negative (Negative); Leukocyte Esterase,Urine Negative (Negative); Nitrite,Urine Negative (Negative); PH, Urine 6.5 (5.0-8.0); Protein,Urine Negative (Negative); RBC,Urine 1 /hpf (0-5); Specific Gravity,Urine 1.005 (1.001-1.035); Squamous Epithelial Cell,Urine <1 /hpf (0-4); Urobilinogen,Urine <2.0 mg/dL (<2.0); WBC,Urine 2 /hpf (0-5)
--- NOTE | 2023-08-21 00:33 | ED ---
General Adult HPI - General Chief complaint: Neuro Symptoms/Deficit Stated complaint: reaction to meds Time Seen by Provider: 08/20/23 20:50 Source: patient Mode of arrival: ambulatory Limitations: no limitations - History of Present Illness Initial comments: 73-year-old female past medical history of liver disease on azathioprine, hyperlipidemia who presents to the emergency department with slurred speech and visual disturbance. Patient states that her symptoms have been present since April when she started taking the azathioprine. Over the past 3 days her symptoms have become worse. States that her vision is blurred. She admits to fatigue, nausea and decreased oral intake. She has slurred speech which appears to be getting worse. She has not spoke to her GI doctor yet about the symptoms. She denies any lateralizing symptoms. No history of stroke. No head injury. No other alleviating, precipitating modifying factors - Related Data Home Medications Medication Instructions Recorded Confirmed Cholecalciferol [Vitamin D3] 1,000 unit PO DAILY 06/11/16 02/11/23 FLUoxetine HCL [PROzac] 30 mg PO DAILY 06/11/16 02/11/23 ALPRAZolam [Xanax] 0.25 mg PO TID PRN 07/15/16 02/11/23 RABEprazole SODIUM [Aciphex] 20 mg PO AC-SUPPER 06/05/20 02/11/23 Allergies Allergy/AdvReac Type Severity Reaction Status Date / Time azithromycin [From Zithromax] Allergy Diarrhea Verified 08/20/23 20:52 cefuroxime Allergy Diarrhea Verified 08/20/23 20:52 cephalexin Allergy Rash/Hives Verified 08/20/23 20:52 clindamycin Allergy BURNING Verified 08/20/23 20:52 TONGUE, NAUSEA levofloxacin [From Levaquin] Allergy COULD NOT Verified 08/20/23 20:52 SLEEP lisinopril Allergy congestion Verified 08/20/23 20:52 nitrofurantoin Allergy Rapid Verified 08/20/23 20:52 [From Macrobid] Heart Rate Penicillins Allergy Rash/Hives Verified 08/20/23 20:52 Topzhtq-MZX-PxE Reductase Allergy ACHY, Verified 08/20/23 20:52 Inhibitor MISERABLE [Lnqqbzw-Nmq-Jlm Reductase Inhibitor] sulfamethoxazole Allergy Nausea & Verified 08/20/23 20:52 [From Bactrim] Vomiting trimethoprim [From Bactrim] Allergy Nausea & Verified 08/20/23 20:52 Vomiting clarithromycin [From Biaxin] AdvReac Abdominal Verified 08/20/23 20:52 Pain Iodinated Contrast Media AdvReac Nausea & Verified 08/20/23 20:52 [Iodinated Contrast Media - Vomiting Oral and] Sulfa (Sulfonamide AdvReac Nausea & Verified 08/20/23 20:52 Antibiotics) Vomiting viomycin [Viomycin] AdvReac Nausea & Verified 08/20/23 20:52 Vomiting DECONGESTANTS Allergy Rapid Uncoded 08/20/23 20:52 Heart Rate SUDAFEDRINE AdvReac Rapid Uncoded 08/20/23 20:52 Heart Rate Review of Systems ROS Statement: Those systems with pertinent positive or pertinent negative responses have been documented in the HPI. ROS Other: All systems not noted in ROS Statement are negative. 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 History of Any Multi-Drug Resistant Organisms: None Reported Past Surgical History: Breast Surgery, Cardiac Ablation, Cholecystectomy, Hernia Repair, Hysterectomy, Orthopedic Surgery, Tonsillectomy Additional Past Surgical History / Comment(s): Left Femoral Osteotomy. ORIF LT Ankle. EXC CYST LT BREAST. Past Anesthesia/Blood Transfusion Reactions: Motion Sickness, Postoperative Nausea & Vomiting (PONV) Past Psychological History: Anxiety, Depression, Panic Disorder Smoking Status: Former smoker Past Alcohol Use History: None Reported Past Drug Use History: None Reported - Past Family History Mother History Unknown: Yes Family Medical History: Hypertension Father Family Medical History: Chest Pain / Angina, Coronary Artery Disease (CAD) Brother(s) Family Medical History: Myocardial Infarction (AR) Additional Family Medical History / Comment(s): 2 brothers with schizophrenia General Exam Limitations: no limitations General appearance: alert, in no apparent distress Head exam: Present: atraumatic, normocephalic, normal inspection Eye exam: Present: normal appearance, PERRL, EOMI. Absent: scleral icterus, conjunctival injection, periorbital swelling ENT exam: Present: normal exam, mucous membranes moist Neck exam: Present: normal inspection. Absent: tenderness, meningismus, lymphadenopathy Respiratory exam: Present: normal lung sounds bilaterally. Absent: respiratory distress, wheezes, rales, rhonchi, stridor Cardiovascular Exam: Present: regular rate, normal rhythm, normal heart sounds. Absent: systolic murmur, diastolic murmur, rubs, gallop, clicks GI/Abdominal exam: Present: soft, normal bowel sounds. Absent: distended, tenderness, guarding, rebound, rigid Extremities exam: Present: normal inspection, full ROM, normal capillary refill. Absent: tenderness, pedal edema, joint swelling, calf tenderness Back exam: Present: normal inspection Neurological exam: Present: alert, oriented X3, CN II-XII intact, other (Patient has mild dysarthria) Psychiatric exam: Present: normal affect, normal mood Skin exam: Present: warm, dry, intact, normal color. Absent: rash Course Vital Signs 08/20/23 08/21/23 20:46 00:12 Temperature 98.5 F Pulse Rate 89 76 Respiratory 24 16 Rate Blood Pressure 196/110 189/101 O2 Sat by Pulse 98 98 Oximetry Medical Decision Making - Medical Decision Making Was pt. sent in by a medical professional or institution ([facility], [facility] [facility], urgent care, hospital, or senior living...) When possible be specific @ -No Did you speak to anyone other than the patient for history (EMS, parent, family, police, friend...)? What history was obtained from this source @ -I spoke with the patient's daughter in regards to her symptoms. She states that symptoms have been worsening over the past 48 hours Did you review nursing and triage notes (agree or disagree)? Why? @ -I reviewed and agree with nursing and triage notes Were old charts reviewed (outside hosp., previous admission, EMS record, old EKG, old radiological studies, urgent care reports/EKG's, senior living records)? Report findings @ -No old charts were reviewed Differential Diagnosis (chest pain, altered mental status, abdominal pain women, abdominal pain men, vaginal bleeding, weakness, fever, dyspnea, syncope, headache, dizziness, GI bleed, back pain, seizure, CVA, palpatations, mental health, musculoskeletal)? @ -Differential Weakness: Hypoglycemia, shock, sepsis, hyponatremia, anemia, infection, AR, ETOH, adverse medicine reaction, overdose, stroke, this is not meant to be an all-inclusive list. Differential CVA Ischemic stroke, hemorrhagic stroke, brain tumor, atypical migraine, Wernicke's encephalopathy, seizure, multiple sclerosis, meningitis, encephalitis, hypoglycemia, Guillain-Siegel, electrolytes disturbance, myasthenia gravis.... This is not meant to be an all-inclusive list EKG interpreted by me (3pts min.). @ -Yes and demonstrates sinus rhythm with a rate of 82. MS interval 162. QRS 101. QTc of 447. No acute ST segment elevations or depressions X-rays interpreted by me (1pt min.). @ -Yes and demonstrates no acute process CT interpreted by me (1pt min.). @ -Yes and demonstrates no acute process U/S interpreted by me (1pt. min.). @ -None done What testing was considered but not performed or refused? (CT, X-rays, U/S, labs)? Why? @ -MRI and neurology consultation however patient refused to be admitted to the hospital What meds were considered but not given or refused? Why? @ -None Did you discuss the management of the patient with other professionals (professionals i.e. , PA, HAND TOOL LAPPER, lab, RT, psych nurse, neonatal social worker, police booking officer, teacher, ordnance officer, case filler)? Give summary @ -No Was smoking cessation discussed for >3mins.? @ -No Was critical care preformed (if so, how long)? @ -No Were there social determinants of health that impacted care today? How? (Homel essness, low income, unemployed, alcoholism, drug addiction, transportation, low edu. Level, literacy, decrease access to med. care, [facility], rehab)? @ -No Was there de-escalation of care discussed even if they declined (Discuss DNR or withdrawal of care, Hospice)? DNR status @ -No What co-morbidities impacted this encounter? (DM, HTN, Smoking, COPD, CAD, Cancer, CVA, ARF, Chemo, Hep., AIDS, mental health diagnosis, sleep apnea, morbid obesity)? @ -Liver disease Was patient admitted / discharged? Hospital course, mention meds given and route, prescriptions, significant lab abnormalities, going to OR and other pertinent info. @ -Upon arrival patient was seen and evaluated in room in trauma 1. Thorough history and physical exam was performed. Daughter states that her symptoms have been acutely worsening for the past 48 hours and therefore code stroke was not activated. IV was established. Laboratory studies are conducted. CT is performed of the patient's brain. Results of laboratory studies are discussed with the patient. I did recommend admission for neurology consultation due to the slurred speech however patient does not want to be admitted at this time. She is satisfied with her current workup and would like to go home. She is aware of the risks of leaving without further workup which includes permanent disability and even . Patient may suffer from worsening of her symptoms for which he understood. Patient was agreeable to return to the emergency department should she need to. She needs to follow-up with her primary care doctor. Patient discharged home in stable condition Undiagnosed new problem with uncertain prognosis? @ -Yes Drug Therapy requiring intensive monitoring for toxicity (Heparin, Nitro, Insulin, Cardizem)? @ -No Were any procedures done? @ -No Diagnosis/symptom? @ -Acute dysarthria, possible CVA versus medication side effect Acute, or Chronic, or Acute on Chronic? @ -Acute Uncomplicated (without systemic symptoms) or Complicated (systemic symptoms)? @ -Complicated Side effects of treatment? @ -No Exacerbation, Progression, or Severe Exacerbation? @ -No Poses a threat to life or bodily function? How? (Chest pain, USA, AR, pneumonia, PE, COPD, DKA, ARF, appy, cholecystitis, CVA, Diverticulitis, Homicidal, Suicidal, threat to staff... and all critical care pts) @ -No - Lab Data Result diagrams: 08/20/23 21:02 08/20/23 21:02 Lab Results 08/20/23 08/20/23 08/20/23 Range/Units 21:01 21:02 21:02 WBC 9.2 (3.8-10.6) k/uL RBC 4.88 (3.80-5.40) m/uL Hgb 15.0 (11.4-16.0) gm/dL Hct 46.3 H (34.0-46.0) % MCV 94.8 (80.0-100.0) fL MCH 30.7 (25.0-35.0) pg MCHC 32.4 (31.0-37.0) g/dL RDW 12.1 (11.5-15.5) % Plt Count 315 (150-450) k/uL MPV 8.0 Neutrophils % 64 % Lymphocytes % 24 % Monocytes % 6 % Eosinophils % 3 % Basophils % 1 % Neutrophils # 5.9 (1.3-7.7) k/uL Lymphocytes # 2.2 (1.0-4.8) k/uL Monocytes # 0.6 (0-1.0) k/uL Eosinophils # 0.3 (0-0.7) k/uL Basophils # 0.1 (0-0.2) k/uL PT 11.1 (10.0-12.5) sec INR 1.0 (<1.2) APTT 25.0 (22.0-30.0) sec Sodium (137-145) mmol/L Potassium (3.5-5.1) mmol/L Chloride (98-107) mmol/L Carbon Dioxide (22-30) mmol/L Anion Gap mmol/L BUN (7-17) mg/dL Creatinine (0.52-1.04) mg/dL Est GFR (CKD-EPI)AfAm (>60 ml/min/1.73 sqM) Est GFR (CKD-EPI)NonAf (>60 ml/min/1.73 sqM) Glucose (74-99) mg/dL POC Glucose (mg/dL) 95 (70-110) mg/dL POC Glu Manager Medical Device ID Panfilo Hunter Plasma Lactic Acid Cj (0.7-2.0) mmol/L Calcium (8.4-10.2) mg/dL Total Bilirubin (0.2-1.3) mg/dL AST (14-36) U/L ALT (4-34) U/L Alkaline Phosphatase (38-126) U/L Creatine Kinase (30-135) U/L Troponin I (0.000-0.034) ng/mL Total Protein (6.3-8.2) g/dL Albumin (3.5-5.0) g/dL Urine Color Urine Appearance (Clear) Urine pH (5.0-8.0) Ur Specific [place] (1.001-1.035) Urine Protein (Negative) Urine Glucose (UA) (Negative) Urine Ketones (Negative) Urine Blood (Negative) Urine Nitrite (Negative) Urine Bilirubin (Negative) Urine Urobilinogen (<2.0) mg/dL Ur Leukocyte Esterase (Negative) Urine RBC (0-5) /hpf Urine WBC (0-5) /hpf Ur Squamous Epith Cells (0-4) /hpf 08/20/23 08/20/23 08/20/23 Range/Units 21:02 21:02 21:02 WBC (3.8-10.6) k/uL RBC (3.80-5.40) m/uL Hgb (11.4-16.0) gm/dL Hct (34.0-46.0) % MCV (80.0-100.0) fL MCH (25.0-35.0) pg MCHC (31.0-37.0) g/dL RDW (11.5-15.5) % Plt Count (150-450) k/uL MPV Neutrophils % % Lymphocytes % % Monocytes % % Eosinophils % % Basophils % % Neutrophils # (1.3-7.7) k/uL Lymphocytes # (1.0-4.8) k/uL Monocytes # (0-1.0) k/uL Eosinophils # (0-0.7) k/uL Basophils # (0-0.2) k/uL PT (10.0-12.5) sec INR (<1.2) APTT (22.0-30.0) sec Sodium 137 (137-145) mmol/L Potassium 3.8 (3.5-5.1) mmol/L Chloride 103 (98-107) mmol/L Carbon Dioxide 28 (22-30) mmol/L Anion Gap 6 mmol/L BUN 12 (7-17) mg/dL Creatinine 0.80 (0.52-1.04) mg/dL Est GFR (CKD-EPI)AfAm 85 (>60 ml/min/1.73 sqM) Est GFR (CKD-EPI)NonAf 74 (>60 ml/min/1.73 sqM) Glucose 103 H (74-99) mg/dL POC Glucose (mg/dL) (70-110) mg/dL POC Glu Manager Medical Device ID Plasma Lactic Acid Cj 1.1 (0.7-2.0) mmol/L Calcium 9.5 (8.4-10.2) mg/dL Total Bilirubin 0.6 (0.2-1.3) mg/dL AST 32 (14-36) U/L ALT 17 (4-34) U/L Alkaline Phosphatase 87 (38-126) U/L Creatine Kinase 84 (30-135) U/L Troponin I <0.012 (0.000-0.034) ng/mL Total Protein 7.0 (6.3-8.2) g/dL Albumin 4.2 (3.5-5.0) g/dL Urine Color Urine Appearance (Clear) Urine pH (5.0-8.0) Ur Specific [place] (1.001-1.035) Urine Protein (Negative) Urine Glucose (UA) (Negative) Urine Ketones (Negative) Urine Blood (Negative) Urine Nitrite (Negative) Urine Bilirubin (Negative) Urine Urobilinogen (<2.0) mg/dL Ur Leukocyte Esterase (Negative) Urine RBC (0-5) /hpf Urine WBC (0-5) /hpf Ur Squamous Epith Cells (0-4) /hpf 08/20/23 Range/Units 23:25 WBC (3.8-10.6) k/uL RBC (3.80-5.40) m/uL Hgb (11.4-16.0) gm/dL Hct (34.0-46.0) % MCV (80.0-100.0) fL MCH (25.0-35.0) pg MCHC (31.0-37.0) g/dL RDW (11.5-15.5) % Plt Count (150-450) k/uL MPV Neutrophils % % Lymphocytes % % Monocytes % % Eosinophils % % Basophils % % Neutrophils # (1.3-7.7) k/uL Lymphocytes # (1.0-4.8) k/uL Monocytes # (0-1.0) k/uL Eosinophils # (0-0.7) k/uL Basophils # (0-0.2) k/uL PT (10.0-12.5) sec INR (<1.2) APTT (22.0-30.0) sec Sodium (137-145) mmol/L Potassium (3.5-5.1) mmol/L Chloride (98-107) mmol/L Carbon Dioxide (22-30) mmol/L Anion Gap mmol/L BUN (7-17) mg/dL Creatinine (0.52-1.04) mg/dL Est GFR (CKD-EPI)AfAm (>60 ml/min/1.73 sqM) Est GFR (CKD-EPI)NonAf (>60 ml/min/1.73 sqM) Glucose (74-99) mg/dL POC Glucose (mg/dL) (70-110) mg/dL POC Glu Manager Medical Device ID Plasma Lactic Acid Cj (0.7-2.0) mmol/L Calcium (8.4-10.2) mg/dL Total Bilirubin (0.2-1.3) mg/dL AST (14-36) U/L ALT (4-34) U/L Alkaline Phosphatase (38-126) U/L Creatine Kinase (30-135) U/L Troponin I (0.000-0.034) ng/mL Total Protein (6.3-8.2) g/dL Albumin (3.5-5.0) g/dL Urine Color Colorless Urine Appearance Clear (Clear) Urine pH 6.5 (5.0-8.0) Ur Specific [place] 1.005 (1.001-1.035) Urine Protein Negative (Negative) Urine Glucose (UA) Negative (Negative) Urine Ketones Negative (Negative) Urine Blood Trace H (Negative) Urine Nitrite Negative (Negative) Urine Bilirubin Negative (Negative) Urine Urobilinogen <2.0 (<2.0) mg/dL Ur Leukocyte Esterase Negative (Negative) Urine RBC 1 (0-5) /hpf Urine WBC 2 (0-5) /hpf Ur Squamous Epith Cells <1 (0-4) /hpf Disposition Clinical Impression: Slurred speech Disposition: HOME SELF-CARE Condition: Stable Instructions (If sedation given, give patient instructions): Weakness (ED) Additional Instructions: I recommend that you follow-up with the neurologist for further evaluation of your symptoms. Please keep a log of your blood pressures. Check them twice a day. They will need to be treated if they remain high. return for any new or worsening symptoms Is patient prescribed a controlled substance at d/c from ED?: No Referrals: Eze Phillips MD [Primary Care Provider] - 1-2 days Hayley Lujan DO [REFERRING] - 1-2 days Time of Disposition: 00:33
[2023-08-21 00:37] VITALS: BP 189/101; PULSE 76; RESP 16
== END 2023-08-21 00:40 | disposition home or self-care (01) ==
LOC: EC 20:36
DX: R47.81 Slurred speech (principal); R47.1 Dysarthria and anarthria; K76.9 Liver disease, unspecified; Z88.1 Allergy status to other antibiotic agents; Z88.0 Allergy status to penicillin; Z88.2 Allergy status to sulfonamides; Z88.8 Allergy status to other drugs, medicaments and biological substances; Z88.5 Allergy status to narcotic agent; Z91.041 Radiographic dye allergy status; Z87.891 Personal history of nicotine dependence
CPT/HCPCS: 36415; 70450; 71046; 80053; 81001; 82550; 83605; 84484; 85025; 85610; 85730; 93005; 99284

== ENCOUNTER → 2023-10-02 | Outpatient (CLI) | payer MEDICARE ==
[2023-10-02 17:20] LABS: Basophils % (A) 1.5 %; Eosinophils % (A) 3.1 %; HGB 14.8 g/dL (12.0-15.0); Lymphocytes # (A) 1.52 X 10*3/uL (0.90-5.00); Lymphocytes % (A) 23.3 %; MCH 30.6 pg (27.0-32.0); MCHC 32.9 g/dL (32.0-37.0); Mean Platelet Volume 11.8 FL (9.5-12.2); Monocytes # (A) 0.53 X 10*3/uL (0.20-1.00); Monocytes % (A) 8.1 %; NRBC Per 100 WBC 0 X 10*3/uL (0.00-0.01); Neutrophils # (A) 4.15 X 10*3/uL (1.80-7.70); Neutrophils % (A) 63.7 %; Platelet Count 213 X 10*3/uL (140-440); RBC 4.84 X 10*6/uL (4.10-5.20); RDW 13.2 % (11.5-14.5); WBC 6.52 X 10*3/uL (4.50-10.00)
[2023-10-02 17:46] LABS: ALT 19 U/L (8-44); AST 25 U/L (13-35); Albumin 4.3 g/dL (3.8-4.9); Albumin/Globulin Ratio 1.79 Ratio (1.60-3.17); Alkaline Phosphatase 100 U/L (41-126); Blood Urea Nitrogen 10.4 mg/dL (9.0-27.0); Calcium 9.6 mg/dL (8.7-10.3); Carbon Dioxide 28.1 mmol/L (21.6-31.8); Chloride 102 mmol/L (96-109); Globulin 2.4 g/dL (1.6-3.3); Glucose 118 mg/dL (70-110); Potassium 4.6 mmol/L (3.5-5.5); Sodium 141 mmol/L (135-145); Total Bilirubin 0.5 mg/dL (0.3-1.2); Total Protein 6.7 g/dL (6.2-8.2)
== END | disposition home or self-care (01) ==
LOC: LABWHC1 10:55
PROVIDERS: ATTEND Internal Medicine Cardiovascular Disease
DX: K75.4 Autoimmune hepatitis (principal)
CPT/HCPCS: 36415; 80053; 85025

== ENCOUNTER → 2023-10-09 | Outpatient (CLI) | payer MEDICARE ==
--- NOTE | 2023-10-09 17:03 | CT ---
EXAMINATION TYPE: CT chest wo con CT DLP: 536 mGycm, Automated exposure control for dose reduction was used. DATE OF EXAM: 10/09/2023 10:04 AM COMPARISON: 06/11/2016. CLINICAL INDICATION:Female, 73 years old with history of G70.0 MYASTHENIA GRAVIS WITHOUT (ACUTE) EXAC ERBATI; PHH, MYASTHENIA GRAVIS TECHNIQUE: Multiple axial images were obtained through the chest. Sagittal and coronal reformats were created for review. Contrast used: mL of (None if empty) Oral contrast used: (None if empty) FINDINGS: LUNGS/ PLEURA: No focal consolidation, pneumothorax or pleural effusion. No enlarging pulmonary nodul es AIRWAY: Patent and unremarkable. HEART: Size within normal limits. MEDIASTINUM: No gross evidence of adenopathy. VASCULATURE: No aortic aneurysm. MUSCULOSKELETAL: Mild disc degeneration changes are present throughout the thoracolumbar spine. SOFT TISSUES/LYMPH NODES: Unremarkable. LOWER NECK: No significant findings. UPPER ABDOMEN: Gallbladder surgically absent. Partially visualized right renal cyst. IMPRESSION: No evidence for acute thoracic process. Follow up recommendations for incidental pulmonary nodules, if there are any, are per [employer] or [employer]. [email or web address]?lang=us
== END | disposition home or self-care (01) ==
LOC: RADCTMAIN 09:33
PROVIDERS: ATTEND Psychiatry & Neurology Neurology
DX: G70.00 Myasthenia gravis without (acute) exacerbation (principal)
CPT/HCPCS: 71250

== ENCOUNTER → 2023-11-30 | Outpatient (CLI) | payer MEDICARE ==
[2023-11-30 20:26] LABS: ALT 16 U/L (8-44); AST 20 U/L (13-35); Albumin 4.4 g/dL (3.8-4.9); Alkaline Phosphatase 88 U/L (41-126); BUN/Creat Ratio 16.11 Ratio (12.00-20.00); Blood Urea Nitrogen 14.5 mg/dL (9.0-27.0); Calcium 9.5 mg/dL (8.7-10.3); Carbon Dioxide 22.8 mmol/L (21.6-31.8); Chloride 100 mmol/L (96-109); Globulin 2.2 g/dL (1.6-3.3); Glucose 96 mg/dL (70-110); Potassium 3.9 mmol/L (3.5-5.5); Sodium 138 mmol/L (135-145); Total Bilirubin 0.6 mg/dL (0.3-1.2); Total Protein 6.6 g/dL (6.2-8.2)
== END | disposition home or self-care (01) ==
LOC: LABWHC1 13:28
PROVIDERS: ATTEND Internal Medicine Gastroenterology
DX: K75.4 Autoimmune hepatitis (principal)
CPT/HCPCS: 36415; 80053

== ENCOUNTER → 2024-01-01 | Outpatient (CLI) | payer MEDICARE ==
[2024-01-01 10:59] LABS: Basophils % (A) 1.5 %; Eosinophils # (A) 0.12 X 10*3/uL (0.04-0.35); Eosinophils % (A) 1.9 %; HCT 44.6 % (37.2-46.3); HGB 14.5 g/dL (12.0-15.0); Lymphocytes # (A) 1.59 X 10*3/uL (0.90-5.00); Lymphocytes % (A) 24.6 %; MCH 29.6 pg (27.0-32.0); MCHC 32.5 g/dL (32.0-37.0); Mean Platelet Volume 11.7 FL (9.5-12.2); Monocytes # (A) 0.53 X 10*3/uL (0.20-1.00); Monocytes % (A) 8.2 %; NRBC Per 100 WBC 0 X 10*3/uL (0.00-0.01); Neutrophils % (A) 63.3 %; Platelet Count 232 X 10*3/uL (140-440); RDW 13.1 % (11.5-14.5); WBC 6.47 X 10*3/uL (4.50-10.00)
[2024-01-01 11:03] LABS: ALT 12 U/L (8-44); AST 21 U/L (13-35); Albumin 4.1 g/dL (3.8-4.9); Albumin/Globulin Ratio 1.78 Ratio (1.60-3.17); Alkaline Phosphatase 102 U/L (41-126); BUN/Creat Ratio 14.88 Ratio (12.00-20.00); Blood Urea Nitrogen 11.9 mg/dL (9.0-27.0); Calcium 9.3 mg/dL (8.7-10.3); Chloride 102 mmol/L (96-109); Globulin 2.3 g/dL (1.6-3.3); Glucose 107 mg/dL (70-110); Potassium 4.2 mmol/L (3.5-5.5); Sodium 140 mmol/L (135-145); Total Bilirubin 0.7 mg/dL (0.3-1.2); Total Protein 6.4 g/dL (6.2-8.2)
== END | disposition home or self-care (01) ==
LOC: LABWHC1 08:02
PROVIDERS: ATTEND Family Medicine
DX: K75.4 Autoimmune hepatitis (principal)
CPT/HCPCS: 36415; 80053; 85025

== ENCOUNTER → 2024-01-29 | Outpatient (CLI) | payer MEDICARE ==
[2024-01-29 15:15] LABS: Basophils # (A) 0.09 X 10*3/uL (0.00-0.10); Eosinophils # (A) 0.13 X 10*3/uL (0.04-0.35); Eosinophils % (A) 1.5 %; HGB 14.8 g/dL (12.0-15.0); Lymphocytes % (A) 16.8 %; MCH 30.1 pg (27.0-32.0); MCHC 32.9 g/dL (32.0-37.0); MCV 91.5 FL (80.0-97.0); Mean Platelet Volume 11.3 FL (9.5-12.2); Monocytes # (A) 0.58 X 10*3/uL (0.20-1.00); Monocytes % (A) 6.5 %; NRBC Per 100 WBC 0 X 10*3/uL (0.00-0.01); Neutrophils # (A) 6.59 X 10*3/uL (1.80-7.70); Platelet Count 289 X 10*3/uL (140-440); RBC 4.92 X 10*6/uL (4.10-5.20); RDW 13.2 % (11.5-14.5); WBC 8.91 X 10*3/uL (4.50-10.00)
[2024-01-29 15:28] LABS: ALT 12 U/L (8-44); AST 21 U/L (13-35); Albumin 4.1 g/dL (3.8-4.9); Albumin/Globulin Ratio 1.86 Ratio (1.60-3.17); Alkaline Phosphatase 94 U/L (41-126); BUN/Creat Ratio 19.62 Ratio (12.00-20.00); Blood Urea Nitrogen 15.7 mg/dL (9.0-27.0); Calcium 9.5 mg/dL (8.7-10.3); Carbon Dioxide 26.3 mmol/L (21.6-31.8); Chloride 102 mmol/L (96-109); Globulin 2.2 g/dL (1.6-3.3); Glucose 100 mg/dL (70-110); Potassium 4.2 mmol/L (3.5-5.5); Sodium 141 mmol/L (135-145); Total Bilirubin 0.7 mg/dL (0.3-1.2); Total Protein 6.3 g/dL (6.2-8.2)
== END | disposition home or self-care (01) ==
LOC: LABWHC1 10:27
PROVIDERS: ATTEND Internal Medicine Gastroenterology
DX: K75.4 Autoimmune hepatitis (principal)
CPT/HCPCS: 36415; 80053; 85025

== ENCOUNTER 2024-04-20 10:28 | Day surgery (SDC) | payer MEDICARE ==
[2024-04-18 12:17] VITALS: BMI 27.3
[~2024-04-20 10:28] MED LIST changes: +LIDOCAINE 1% (10MG/ML) FOR IV START INTRADERMA PRN; +ONDANSETRON 4 MG/2 ML VIAL IVP PRN
[2024-04-20] MEDS: IV FLUID CONTINUATION 500 ML IV ONE (11:11)
[2024-04-20 11:24] VITALS: TEMP 98.6
[2024-04-20] MEDS ORDERED: LIDOCAINE 2% (PF) 20 MG/ML 5 ML VIAL ONE (12:15)
[2024-04-20] MEDS ORDERED: PROPOFOL 10 MG/ML 20 ML VIAL IV ONE (12:15)
--- NOTE | 2024-04-20 12:24 | P.PCN ---
Date of Procedure: 04/20/24 Procedure(s) Performed: BRIEF HISTORY: Patient is a 73-year-old, pleasant, white female with history of liver cirrhosis/autoimmune hepatitis scheduled for an upper endoscopy to screen for esophageal varices. PROCEDURE PERFORMED: Esophagogastroduodenoscopy with biopsy. PREOPERATIVE DIAGNOSIS: History of liver cirrhosis/screening for esophageal varices. IV sedation per anesthesia. PROCEDURE: After informed consent was obtained, the patient was brought into the endoscopy unit. IV sedation was administered by Anesthesia under continuous monitoring. Initially the Olympus GIF-140 video endoscope was inserted into the mouth. Esophagus intubated without any difficulty. It was gradually advanced into the stomach and duodenum and carefully examined. The bulb and the second part of the duodenum appeared normal. The scope at this time was withdrawn to the stomach, adequately insufflated with air, and upon careful examination, mucosa of the antrum, he is gastritis and biopsies were done for this area. There were multiple gastric polyps noted in the gastric body measuring between 5 mm to 2 cm in size which were biopsied. Mucosa of the body, cardia and the fundus appeared normal. ST varices identified. The scope was then withdrawn into the esophagus. The GE junction was located at 39 cm from the incisors. The esophagus appeared normal. There were no erosions or ulcerations seen. No evidence of esophageal varices and the patient tolerated the procedure well. IMPRESSION: 1. No evidence of gastric or esophageal varices. 2. Diffuse antral gastritis 3. Multiple gastric polyps measuring between 5 mm to 2 cm in size s/p biopsy. RECOMMENDATIONS: The findings of this examination were discussed with the patient as well as her family. She was advised to follow-up with the biopsy results and recommended repeat EGD in 2 years to screen for esophageal varices.
[2024-04-20 12:34] VITALS: PULSE 54; RESP 14
[2024-04-20 12:48] VITALS: BP 168/93
== END 2024-04-20 13:11 | disposition home or self-care (01) ==
LOC: ORWHC2ENDO 10:28
PROVIDERS: ATTEND Internal Medicine Gastroenterology
DX: K29.50 Unspecified chronic gastritis without bleeding (principal); K31.7 Polyp of stomach and duodenum; K74.60 Unspecified cirrhosis of liver; E78.5 Hyperlipidemia, unspecified; F17.210 Nicotine dependence, cigarettes, uncomplicated; F32.A Depression, unspecified; F41.9 Anxiety disorder, unspecified; K21.9 Gastro-esophageal reflux disease without esophagitis; G70.00 Myasthenia gravis without (acute) exacerbation; M19.90 Unspecified osteoarthritis, unspecified site; Z86.79 Personal history of other diseases of the circulatory system; Z90.89 Acquired absence of other organs; Z98.890 Other specified postprocedural states; Z90.710 Acquired absence of both cervix and uterus; Z88.0 Allergy status to penicillin; Z88.2 Allergy status to sulfonamides; Z88.1 Allergy status to other antibiotic agents; Z88.8 Allergy status to other drugs, medicaments and biological substances; Z79.899 Other long term (current) drug therapy
CPT/HCPCS: 88305; 43239; J2704; J2003

== ENCOUNTER → 2024-06-22 | Outpatient (CLI) | payer MEDICARE ==
--- NOTE | 2024-06-22 14:52 | US ---
EXAMINATION TYPE: US carotid duplex BILAT DATE OF EXAM: 06/22/2024 COMPARISON: NONE CLINICAL INDICATION: Female, 74 years old with history of I65.29 OCCLUSION AND STENOSIS OF UNSPECIFIE D CAROT; No HTN. No hx TIA Additional History: .... TECHNIQUE: Grayscale, color Doppler and spectral Doppler evaluation of the bilateral carotid systems and vertebral arteries. Indirect Doppler criteria was utilized. FINDINGS: EXAM MEASUREMENTS: RIGHT: Peak Systolic Velocity (PSV) cm/sec ----- Right CCA: 64.2 ----- Right ICA: 86.4 ----- Right ECA: 84.0 ICA/CCA ratio: 1.3 RIGHT: End Diastole cm/sec ----- Right CCA: 14.5 ----- Right ICA: 27.0 ----- Right ECA: 6.3 LEFT: Peak Systolic Velocity (PSV) cm/sec ----- Left CCA: 85.3 ----- Left ICA: 72.9 ----- Left ECA: 83.4 ICA/CCA ratio: 0.9 LEFT: End Diastole cm/sec ----- Left CCA: 12.8 ----- Left ICA: 21.5 ----- Left ECA: 9.8 VERTEBRALS (direction of flow): Right Vertebral: Antegrade Left Vertebral: Antegrade Rhythm: Normal MEDICAL EDUCATION MANAGER NOTES: Elevated proximal left CCA velocity. Plaque left bulb. Color Doppler imaging shows patency with blood flow throughout the carotid artery. Spectral waveforms are within normal limits. IMPRESSION: Right: No hemodynamically significant stenosis. Left: No hemodynamically significant stenosis. Criteria for Assigning % of Stenosis / Diameter reduction (Estimation based on the indirect measurements of the internal carotid artery velocities (ICA PSV). 1. Normal (no stenosis)=ICA PSV < 125 cm/s: ratio < 2.0: ICA EDV<40 cm/s. 2. Less than 50% stenosis=ICA PSV < 125 cm/s: ratio < 2.0: ICA EDV<40 cm/s. 3. 50 to 69% stenosis=ICA PSV of 125 to 230 cm/s: ration 2.0 ? 4.0: ICA EDV 40-100 cm/s. 4. Greater than 70% stenosis to near occlusion= ICA PSV > 230 cm/s: ratio > 4.0: ICA EDV > 100 cm/s. 5. Near occlusion= ICA PSV velocities may be low or undetectable: variable ratio and ICA EDV. 6. Total occlusion=unable to detect flow. [facility], , 06/22/2024 2:49 PM
== END | disposition home or self-care (01) ==
LOC: RADUSWWP 14:07
PROVIDERS: ATTEND Family Medicine
DX: I65.23 Occlusion and stenosis of bilateral carotid arteries (principal)
CPT/HCPCS: 93880

== ENCOUNTER → 2024-07-26 | Outpatient (CLI) | payer MEDICARE ==
[2024-07-26 14:43] LABS: Basophils # (A) 0.09 X 10*3/uL (0.00-0.10); Basophils % (A) 1.5 %; Eosinophils # (A) 0.11 X 10*3/uL (0.04-0.35); Eosinophils % (A) 1.9 %; HCT 44.1 % (37.2-46.3); HGB 14.6 g/dL (12.0-15.0); Lymphocytes # (A) 1.55 X 10*3/uL (0.90-5.00); Lymphocytes % (A) 26.7 %; MCH 30.4 pg (27.0-32.0); MCHC 33.1 g/dL (32.0-37.0); MCV 91.7 FL (80.0-97.0); Mean Platelet Volume 11.5 FL (9.5-12.2); Monocytes # (A) 0.49 X 10*3/uL (0.20-1.00); Monocytes % (A) 8.4 %; NRBC Per 100 WBC 0 X 10*3/uL (0.00-0.01); Neutrophils # (A) 3.56 X 10*3/uL (1.80-7.70); Neutrophils % (A) 61.3 %; Platelet Count 277 X 10*3/uL (140-440); RBC 4.81 X 10*6/uL (4.10-5.20); RDW 13.3 % (11.5-14.5); WBC 5.81 X 10*3/uL (4.50-10.00)
[2024-07-26 15:02] LABS: ALT 14 U/L (8-44); AST 21 U/L (13-35); Albumin/Globulin Ratio 1.74 Ratio (1.60-3.17); Alkaline Phosphatase 94 U/L (41-126); BUN/Creat Ratio 16.88 Ratio (12.00-20.00); Blood Urea Nitrogen 13.5 mg/dL (9.0-27.0); Calcium 9.2 mg/dL (8.7-10.3); Carbon Dioxide 24.3 mmol/L (21.6-31.8); Chloride 104 mmol/L (96-109); Globulin 2.3 g/dL (1.6-3.3); Glucose 102 mg/dL (70-110); Potassium 4.3 mmol/L (3.5-5.5); Sodium 140 mmol/L (135-145); Total Bilirubin 0.6 mg/dL (0.3-1.2); Total Protein 6.3 g/dL (6.2-8.2)
== END | disposition home or self-care (01) ==
LOC: LABWHC1 08:04
PROVIDERS: ATTEND Nurse Practitioner Family
DX: K75.4 Autoimmune hepatitis (principal)
CPT/HCPCS: 36415; 80053; 85025

== ENCOUNTER → 2024-07-29 | Outpatient (CLI) | payer MEDICARE ==
--- NOTE | 2024-07-29 09:38 | US ---
EXAMINATION TYPE: US liver DATE OF EXAM: 07/29/2024 COMPARISON: NONE CLINICAL INDICATION: Female, 74 years old with history of K74.60 UNSPECIFIED CIRRHOSIS OF LIVER; cirr hosis TECHNIQUE: Grayscale and color Doppler imaging of the right upper quadrant was performed. FINDINGS: EXAM MEASUREMENTS: Liver Length: 13.7 cm Gallbladder Wall: Surgically absent CBD: 0.5 cm Right Kidney: 11.0x4.3x5.7 cm SUPERVISOR PHOTOCOMPOSITION NOTES: Pancreas: Tail obscured by overlying bowel gas Liver: wnl Gallbladder: Surgically absent Evidence for sonographic Hatfield's sign: No CBD: wnl Right Kidney: Simple appearing cystic area superior pole: 3.9x2.6x2.7cm IMPRESSION: 1. Right renal cyst. [facility], Workstation: [facility], 07/29/2024 9:36 AM
== END | disposition home or self-care (01) ==
LOC: RADUSWWP 08:46
PROVIDERS: ATTEND Internal Medicine Gastroenterology
DX: N28.1 Cyst of kidney, acquired (principal); K74.60 Unspecified cirrhosis of liver
CPT/HCPCS: 76705